=== PATIENT | female | born 1965 | race Caucasian/White ===

== ENCOUNTER 2017-12-21 18:54 | Inpatient (IN) | payer BC ==
[2017-12-21 19:16] VITALS: BMI 20.9
[2017-12-21] MEDS ORDERED: Sodium Chloride 0.9% 1,000 ML IV STA (19:29)
[2017-12-21 20:03] LABS: BASO # 0.02 K/mm3 (0.0-2.0); BASO % 0.3 % (0.0-3.0); EOS % 0.3 % (1.5-5.0); GRAN # 5.05 (1.4-6.5); GRAN % 66.9 % (50.0-68.0); LYMPH % 26.3 % (22.0-35.0); MEAN CELL VOLUME 92.8 fl (80.0-105.0); MEAN CORPUSCULAR HEMOGLOBIN 32.1 pg (25.0-35.0); MEAN CORPUSCULAR HGB CONC 34.6 g/dl (31.0-37.0); MEAN PLATELET VOLUME 11.2 fl (7.0-11.0); MONO # 0.5 (0.1-0.6); MONO % 6.2 % (1.0-6.0); RBC 4.99 10^6/uL (3.5-6.1); WHITE BLOOD COUNT 7.5 10^3/uL (4.5-11.0)
[2017-12-21 20:11] LABS: INR 1.27; PARTIAL THROMBOPLASTIN TIME 26.3 Seconds (25.1-36.5); PROTHROMBIN TIME 14.5 SECONDS (9.4-12.5)
[2017-12-21 20:20] LABS: ALB/GLOB RATIO 1.2 (1.1-1.8); ALBUMIN 4.7 g/dL (3.0-4.8); ALT/SGPT 20 U/L (7-56); AMYLASE 94 U/L (35-125); AST/SGOT 28 U/L (14-36); BLOOD UREA NITROGEN 13 mg/dL (7-21); CALCIUM 9.7 mg/dL (8.4-10.5); GFR NON-AFRICAN AMERICAN > 60; LIPASE 120 U/L (23-300)
[2017-12-21] MEDS ORDERED: Potassium Chloride 20 mEq ER Tab PO STA (20:21)
--- NOTE | 2017-12-21 20:26 | ED PDOC ---
Arrival/HPI - General Chief Complaint: GI Problem Time Seen by Provider: 12/21/17 19:09 Historian: Patient - History of Present Illness Narrative History of Present Illness (Text): 12/21/17 19:25 52 year old female, with no significant past medical history, presents to the emergency department complaining of epigastric ches pain abdominal pain and vomiting after taking her friends medication. Patient states she ran out of her Vicodin and took her friends Baclofen and Flexeril instead. The patient denies any fever, chills, chest pain, shortness of breath, diarrhea, urinary symptoms, back pain, neck pain, headache, dizziness, or any other complaints. PMD: Dr. Artie Jade 12/21/17 21:44 Symptom Onset: Gradual Symptom Course: Unchanged Activities at Onset: Light Context: Home Past Medical History - Provider Review Nursing Documentation Reviewed: Yes - Tetanus Immunization Tetanus Immunization: Unknown - Musculoskeletal/Rheumatological Hx Arthritis: Yes (hips B/L - laser surgery with injections) Hx Falls: No - Psychiatric Hx Psychophysiologic Disorder: No Hx Substance Use: No - Surgical History Other/Comment: on hips bilaterally - laser surgery with injections as per patient. Family/Social History - Physician Review Nursing Documentation Reviewed: Yes Family/Social History: No Known Family HX Smoking Status: Light Smoker < 10 Cigarettes Daily Hx Alcohol Use: Yes Hx Substance Use: No Allergies/Home Meds Allergies/Adverse Reactions: Allergies Penicillins Allergy (Verified 08/25/15 04:49) RASH Home Medications: Home Meds Medication Instructions Recorded Confirmed Acetaminophen/Hydrocodone Bi 1 tab PO Q6 PRN 12/22/17 12/22/17 [Vicodin 300 mg-5 mg] RX: traMADol [Ultram] 50 mg PO Q6 12/22/17 12/22/17 Review of Systems - Physician Review All systems were reviewed & negative as marked: Yes - Review of Systems Constitutional: absent: Fevers, Other (Chills) Respiratory: absent: SOB Cardiovascular: absent: Chest Pain Gastrointestinal: Abdominal Pain, Nausea, Vomiting. absent: Diarrhea Genitourinary Female: absent: Dysuria, Frequency, Hematuria Musculoskeletal: absent: Back Pain, Neck Pain Neurological: absent: Headache, Dizziness Physical Exam Vital Signs Reviewed: Yes Vital Signs Temp Pulse Resp BP Pulse Ox 12/21/17 19:15 98.6 F 78 18 118/86 98 Temperature: Afebrile Blood Pressure: Normal Pulse: Regular Respiratory Rate: Normal Appearance: Positive for: Well-Appearing, Non-Toxic, Comfortable Pain Distress: None Mental Status: Positive for: Alert and Oriented X 3, Lethargic (slightly ) - Systems Exam Head: Present: Atraumatic, Normocephalic Pupils: Present: PERRL Extroacular Muscles: Present: EOMI Conjunctiva: Present: Normal Mouth: Present: Moist Mucous Membranes Neck: Present: Normal Range of Motion Respiratory/Chest: Present: Clear to Auscultation, Good Air Exchange. No: Respiratory Distress, Accessory Muscle Use Cardiovascular: Present: Regular Rate and Rhythm, Normal S1, S2. No: Murmurs Abdomen: Present: Tenderness (Mild epigastric tenderness). No: Distention, Peritoneal Signs Back: Present: Normal Inspection Upper Extremity: Present: Normal Inspection. No: Cyanosis, Edema Lower Extremity: Present: Normal Inspection. No: Edema Neurological: Present: GCS=15, CN II-XII Intact, Speech Normal Skin: Present: Warm, Dry, Normal Color. No: Rashes Psychiatric: Present: Alert, Oriented x 3, Normal Insight, Normal Concentration Medical Decision Making ED Course and Treatment: 12/21/17 19:25 Impression: 52 year old female presents complaining of epigastric abdominal pain and vomiting after taking her friends Baclofen and Flexeril. Plan: -- EKG -- Labs -- CXR -- K-Dur 20, Pepcid, IV Fluids, Zofran Inj -- Urinalysis -- Reassess and disposition Progress Notes: 12/21/17 20:15 EKG shows NSR at 71 BPM with flipped T-Wave V3 and V2. Interpreted by me 12/21/17 21:37 Case discussed with [facility] resident and Dr. Andino who is aware and agrees with the plan. Accepts patient into hospitalist service. 12/21/17 22:41 CXR Impression: As read by PARISH crawley. - Lab Interpretations Lab Results: 12/21/17 19:50 12/21/17 19:50 Lab Results 12/21/17 19:50: Sodium 143, Potassium 3.4 L, Chloride 108 H, Carbon Dioxide 23, Anion Gap 16, BUN 13, Creatinine 0.7, Est GFR ( Amer) > 60, Est GFR (Non- Af Amer) > 60, Random Glucose 130 H, Calcium 9.7, Total Bilirubin 0.8, AST 28, ALT 20, Alkaline Phosphatase 104, Lactate Dehydrogenase 476, Total Creatine Kinase 79, Troponin I Pending, Total Protein 8.7 H, Albumin 4.7, Globulin 4.0, Albumin/Globulin Ratio 1.2, Amylase 94, Lipase 120 12/21/17 19:50: PT 14.5 H, INR 1.27, APTT 26.3 12/21/17 19:50: WBC 7.5, RBC 4.99, Hgb 16.0, Hct 46.3, MCV 92.8, MCH 32.1, MCHC 34.6, RDW 13.0, Plt Count 247, MPV 11.2 H, Gran % 66.9, Lymph % (Auto) 26.3, [place] % (Auto) 6.2 H, Eos % (Auto) 0.3 L, Baso % (Auto) 0.3, Gran # 5.05, Lymph # (Auto) 2.0, [place] # (Auto) 0.5, Eos # (Auto) 0.0, Baso # (Auto) 0.02 I have reviewed the lab results: Yes - EKG Interpretation Interpreted by ED Physician: Yes Type: 12 lead EKG - Medication Orders Current Medication Orders: Sodium Chloride (Sodium Chloride 0.9%) 1,000 mls @ 100 mls/hr IV .Q10H STA Stop: 12/22/17 05:28 Last Admin: 12/21/17 19:55 Dose: 100 mls/hr eMAR Start Stop Document 12/21/17 19:55 CNR (Rec: 12/21/17 19:57 CNR [id number]) Intravenous Solution Start Date 12/21/17 Start Time 19:56 Potassium Chloride (K-Dur 20 Meq Er Tab) 40 meq PO STAT STA Stop: 12/21/17 20:22 Discontinued Medications Famotidine (Pepcid) 20 mg IVP STAT STA Stop: 12/21/17 19:30 Last Admin: 12/21/17 19:57 Dose: 20 mg IVP Administration Document 12/21/17 19:57 CNR (Rec: 12/21/17 19:57 CNR [id number]) Charges for Administration # of IVP Administrations 1 Ondansetron HCl (Zofran Inj) 4 mg IVP STAT STA Stop: 12/21/17 19:30 Last Admin: 12/21/17 19:57 Dose: 4 mg IVP Administration Document 12/21/17 19:57 CNR (Rec: 12/21/17 19:57 CNR [id number]) Charges for Administration # of IVP Administrations 1 - Scribe Statement The provider has reviewed the documentation as recorded by the Carissa Cespedes Provider Scribe Attestation: All medical record entries made by the Carissa were at my direction and personally dictated by me. I have reviewed the chart and agree that the record accurately reflects my personal performance of the history, physical exam, medical decision making, and the department course for this patient. I have also personally directed, reviewed, and agree with the discharge instructions and disposition. Disposition/Present on Arrival - Present on Arrival Any Indicators Present on Arrival: No History of DVT/PE: No History of Uncontrolled Diabetes: No Urinary Catheter: No History of Decub. Ulcer: No History Surgical Site Infection Following: None - Disposition Have Diagnosis and Disposition been Completed?: Yes Diagnosis: Chest pain, Abdominal pain Disposition: HOSPITALIZED Disposition Time: 22:10 Condition: FAIR
[2017-12-21 20:31] LABS: TROPONIN I < 0.01 ng/mL
[2017-12-21] MEDS ORDERED: Morphine 2 mg/ml ISec IVP STA (21:12)
--- NOTE | 2017-12-22 00:14 | CP.PCM.HP ---
<Jason Medley - Last Filed: 12/22/17 02:31> History of Present Illness - History of Present Illness History of Present Illness: Jason Medley DO, PGY-1 Hospitalist Admission History and Physical for Dr. Andino CC: epigastric abdominal pain, OD on flexiril, baclofen HPI: Ms. Smith is a 52 year old female with PMH of chronic back pain presented to ED following OD of baclofen and flexiril. She states that she took 2 baclofen and 2 10 mg tablets of flexiril. She took these to get relief from back pain as she ran out of her prescription vicodin recently. She states she has had back pain for the past year ever since she slipped and fell in her home. She normally follows with her PMD for pain management. She states that she took the baclofen and flexiril at the recommendation of a friend who stated it would help with pain. She denies suicidal ideation or intent and states that she took the pills for relief of back pain and not for self-harm. She endorses epigastric abdominal pain, nausea, and vomiting since taking the pills but denies fever/chills, CP, SOB, dizziness, ANAND, or changes in vision. PMD: Yasmany Past Medical Hx: chronic back pain Past Surgical Hx: b/l hip surgeries Allergies: PCN Home medications: ASA 81 mg daily, gabapentin 100 TID Family Hx: mother had DM2 Social Hx: admits to smoking 1-2 cigarettes per day for the past 20 years, denies alcohol or illicit drug use. Present on Admission - Present on Admission Any Indicators Present on Admission: No History of DVT/PE: No History of Uncontrolled Diabetes: No Urinary Catheter: No Decubitus Ulcer Present: No Review of Systems - Constitutional Constitutional: absent: Chills, Fever - EENT Eyes: absent: Blurred Vision, Change in Vision - Cardiovascular Cardiovascular: absent: Chest Pain, Dyspnea - Respiratory Respiratory: absent: Cough, Dyspnea - Gastrointestinal Gastrointestinal: Abdominal Pain, Nausea, Vomiting - Genitourinary Genitourinary: absent: Change in Urinary Stream, Dysuria Past Patient History - Tetanus Immunizations Tetanus Immunization: Unknown - Past Social History Smoking Status: Light Smoker < 10 Cigarettes Daily - MUSCULOSKELETAL/RHEUMATOLOGICAL Hx Arthritis: Yes (hips B/L - laser surgery with injections) Hx Falls: No - PSYCHIATRIC Hx Psychophysiologic Disorder: No Hx Substance Use: No - SURGICAL HISTORY Other/Comment: on hips bilaterally - laser surgery with injections as per patient. Meds Allergies/Adverse Reactions: Allergies Allergy/AdvReac Type Severity Reaction Status Date / Time Penicillins Allergy RASH Verified 08/25/15 04:49 Physical Exam - Constitutional Appears: Non-toxic, No Acute Distress - Head Exam Head Exam: ATRAUMATIC, NORMOCEPHALIC - Eye Exam Eye Exam: EOMI, Normal appearance, PERRL - ENT Exam ENT Exam: Mucous Membranes Moist - Neck Exam Neck exam: Positive for: Full Rom, Normal Inspection - Respiratory Exam Respiratory Exam: Clear to Auscultation Bilateral, NORMAL BREATHING PATTERN. absent: Rales, Rhonchi, Wheezes - Cardiovascular Exam Cardiovascular Exam: REGULAR RHYTHM, RRR, +S1, +S2. absent: Diastolic murmur, Gallop, Rubs, Systolic Murmur - GI/Abdominal Exam GI & Abdominal Exam: Normal Bowel Sounds, Soft, Tenderness (tenderness to palpa tion epigastric region). absent: Guarding, Organomegaly, Rebound - Extremities Exam Extremities exam: Positive for: normal inspection. Negative for: pedal edema - Back Exam Back exam: NORMAL INSPECTION. absent: CVA tenderness (L), CVA tenderness (R), paraspinal tenderness, tenderness, vertebral tenderness - Neurological Exam Neurological exam: Alert, Oriented x3 - Psychiatric Exam Psychiatric exam: Normal Affect, Normal Mood - Skin Skin Exam: Dry, Intact, Warm Results - Vital Signs Recent Vital Signs: Last Vital Signs Temp 98.6 F 12/21/17 19:15 Pulse 63 12/21/17 23:33 Resp 18 12/21/17 23:33 BP 150/74 12/21/17 23:33 Pulse Ox 97 12/21/17 23:33 - Labs Result Diagrams: 12/21/17 19:50 12/21/17 19:50 Labs: Laboratory Results - last 24 hr 12/21/17 12/21/17 12/21/17 19:50 19:50 19:50 WBC 7.5 RBC 4.99 Hgb 16.0 Hct 46.3 MCV 92.8 MCH 32.1 MCHC 34.6 RDW 13.0 Plt Count 247 MPV 11.2 H Gran % 66.9 Lymph % (Auto) 26.3 [place] % (Auto) 6.2 H Eos % (Auto) 0.3 L Baso % (Auto) 0.3 Gran # 5.05 Lymph # (Auto) 2.0 [place] # (Auto) 0.5 Eos # (Auto) 0.0 Baso # (Auto) 0.02 PT 14.5 H INR 1.27 APTT 26.3 Sodium 143 Potassium 3.4 L Chloride 108 H Carbon Dioxide 23 Anion Gap 16 BUN 13 Creatinine 0.7 Est GFR ( Amer) > 60 Est GFR (Non-Af Amer) > 60 Random Glucose 130 H Calcium 9.7 Total Bilirubin 0.8 AST 28 ALT 20 Alkaline Phosphatase 104 Lactate Dehydrogenase 476 Total Creatine Kinase 79 Troponin I < 0.01 Total Protein 8.7 H Albumin 4.7 Globulin 4.0 Albumin/Globulin Ratio 1.2 Amylase 94 Lipase 120 Assessment & Plan - Assessment and Plan (Free Text) Assessment: 52 yo F with PMH of chronic back pain is admitted following OD of baclofen and flexiril. Plan: 1. Baclofen, flexiril OD Epigastric abdominal pain, nausea, vomiting likely 2/2 recent OD of baclofen, flexirel Poison control notified by ED, f/u poison control recs Lipase, amylase not elevated Continue zofran q4h PRN for nausea/vomiting Also gave one time dose of phenergan for worsening nausea following CT Will get CT abdomen/pelvis to r/o acute pathology Monitor BP and HR closely on telemetry DVT/GI PPX: SCD, protonix Full Code NPO Monitor on telemetry Case and plan reviewed and discussed with my attending Dr. hTu Medley, DO IM Resident PGY-1 <Alisha Andino - Last Filed: 12/22/17 03:07> Results - Vital Signs Recent Vital Signs: Last Vital Signs Temp 99.7 F H 12/22/17 00:59 Pulse 64 12/22/17 00:59 Resp 20 12/22/17 00:59 BP 140/83 12/22/17 00:59 Pulse Ox 98 12/22/17 00:59 - Labs Result Diagrams: 12/21/17 19:50 12/21/17 19:50 Labs: Laboratory Results - last 24 hr 12/21/17 12/21/17 12/21/17 19:50 19:50 19:50 WBC 7.5 RBC 4.99 Hgb 16.0 Hct 46.3 MCV 92.8 MCH 32.1 MCHC 34.6 RDW 13.0 Plt Count 247 MPV 11.2 H Gran % 66.9 Lymph % (Auto) 26.3 [place] % (Auto) 6.2 H Eos % (Auto) 0.3 L Baso % (Auto) 0.3 Gran # 5.05 Lymph # (Auto) 2.0 [place] # (Auto) 0.5 Eos # (Auto) 0.0 Baso # (Auto) 0.02 PT 14.5 H INR 1.27 APTT 26.3 Sodium 143 Potassium 3.4 L Chloride 108 H Carbon Dioxide 23 Anion Gap 16 BUN 13 Creatinine 0.7 Est GFR ( Amer) > 60 Est GFR (Non-Af Amer) > 60 Random Glucose 130 H Calcium 9.7 Total Bilirubin 0.8 AST 28 ALT 20 Alkaline Phosphatase 104 Lactate Dehydrogenase 476 Total Creatine Kinase 79 Troponin I < 0.01 Total Protein 8.7 H Albumin 4.7 Globulin 4.0 Albumin/Globulin Ratio 1.2 Amylase 94 Lipase 120 Urine Color Urine Appearance Urine pH Ur Specific [place] Urine Protein Urine Glucose (UA) Urine Ketones Urine Blood Urine Nitrate Urine Bilirubin Urine Urobilinogen Ur Leukocyte Esterase Urine RBC Urine WBC Ur Epithelial Cells Urine Bacteria Urine Opiates Screen Urine Methadone Screen Ur Barbiturates Screen Ur Phencyclidine Scrn Ur Amphetamines Screen U Benzodiazepines Scrn U Oth Cocaine Metabols U Cannabinoids Screen 12/22/17 12/22/17 00:40 00:40 WBC RBC Hgb Hct MCV MCH MCHC RDW Plt Count MPV Gran % Lymph % (Auto) [place] % (Auto) Eos % (Auto) Baso % (Auto) Gran # Lymph # (Auto) [place] # (Auto) Eos # (Auto) Baso # (Auto) PT INR APTT Sodium Potassium Chloride Carbon Dioxide Anion Gap BUN Creatinine Est GFR ( Amer) Est GFR (Non-Af Amer) Random Glucose Calcium Total Bilirubin AST ALT Alkaline Phosphatase Lactate Dehydrogenase Total Creatine Kinase Troponin I Total Protein Albumin Globulin Albumin/Globulin Ratio Amylase Lipase Urine Color Yellow Urine Appearance Sl cloudy Urine pH 6.0 Ur Specific [place] >= 1.030 Urine Protein Negative Urine Glucose (UA) Negative Urine Ketones >=80 Urine Blood Moderate H Urine Nitrate Negative Urine Bilirubin Negative Urine Urobilinogen 0.2 Ur Leukocyte Esterase Negative Urine RBC 2 - 5 Urine WBC 0 - 2 Ur Epithelial Cells 1 - 3 Urine Bacteria Trace Urine Opiates Screen Positive H Urine Methadone Screen Negative Ur Barbiturates Screen Negative Ur Phencyclidine Scrn Negative Ur Amphetamines Screen Negative U Benzodiazepines Scrn Negative U Oth Cocaine Metabols Negative U Cannabinoids Screen Negative Attending/Attestation - Attestation I have personally seen and examined this patient.: Yes I have fully participated in the care of the patient.: Yes I have reviewed all pertinent clinical information: Yes Notes (Text): 12/22/17 03:04 Pt seen with the resident by the bedside. Case discussed in detail. Agree with documentation,assessment and plan of treatment.
[2017-12-22 01:22] LABS: URINE BILIRUBIN NEGATIVE (NEGATIVE); URINE BLOOD MODERATE (NEGATIVE); URINE GLUCOSE (UA) NEGATIVE (NEGATIVE); URINE LEUKOCYTE ESTERASE NEGATIVE Leu/uL (NEGATIVE); URINE PROTEIN NEGATIVE mg/dL (<30 mg/dL); URINE UROBILINOGEN 0.2 E.U./dL (<1 E.U./dL)
[2017-12-22 01:28] LABS: URINE APPEARANCE SL CLOUDY (CLEAR)
[2017-12-22 01:29] LABS: URINE COLOR YELLOW (YELLOW)
[2017-12-22 01:45] LABS: URINE BACTERIA TRACE (NEG); URINE WBC 0 - 2 /hpf (0-6)
[2017-12-22] MEDS ORDERED: DiphenhydrAMINE 50 mg/ml Inj IVP STA (01:52)
[2017-12-22 01:55] LABS: BARBITURATES, UR NEGATIVE (NEGATIVE); BENZODIAZEPINES, UR NEGATIVE (NEGATIVE); OPIATES, UR POSITIVE (NEGATIVE); PHENCYCLIDINE, UR NEGATIVE (NEGATIVE)
[2017-12-22 07:21] LABS: LDL CHOLESTEROL 127 mg/dL (0-129)
[2017-12-22 07:22] LABS: BASO # 0.03 K/mm3 (0.0-2.0); BASO % 0.3 % (0.0-3.0); GRAN # 6.77 (1.4-6.5); GRAN % 67.7 % (50.0-68.0); HEMOGLOBIN 14.1 g/dL (12.0-16.0); LYMPH # 2.5 (1.2-3.4); LYMPH % 25.1 % (22.0-35.0); MEAN CELL VOLUME 92.9 fl (80.0-105.0); MEAN CORPUSCULAR HEMOGLOBIN 31.1 pg (25.0-35.0); MEAN CORPUSCULAR HGB CONC 33.5 g/dl (31.0-37.0); MEAN PLATELET VOLUME 11.2 fl (7.0-11.0); MONO # 0.7 (0.1-0.6); MONO % 6.9 % (1.0-6.0); RBC 4.53 10^6/uL (3.5-6.1); RED CELL DISTRIBUTION WIDTH 13.2 % (11.5-14.5)
[2017-12-22 07:31] LABS: ALB/GLOB RATIO 1.2 (1.1-1.8); ALBUMIN 4.2 g/dL (3.0-4.8); ALT/SGPT 18 U/L (7-56); AST/SGOT 34 U/L (14-36); BLOOD UREA NITROGEN 9 mg/dL (7-21); CALCIUM 9.5 mg/dL (8.4-10.5); GFR NON-AFRICAN AMERICAN > 60; HDL CHOLESTEROL 52 mg/dL (29-60)
--- NOTE | 2017-12-22 08:54 | RAD ---
Date of service: 12/21/2017 HISTORY: cp COMPARISON: No prior. FINDINGS: LUNGS: No active pulmonary disease. PLEURA: No significant pleural effusion identified, no pneumothorax apparent. CARDIOVASCULAR: No aortic atherosclerotic calcification present. Normal cardiac size. No pulmonary vascular congestion. OSSEOUS STRUCTURES: No significant abnormalities. VISUALIZED UPPER ABDOMEN: Normal. OTHER FINDINGS: None. IMPRESSION: No active disease.
--- NOTE | 2017-12-22 10:07 | CARD ---
APPROVED REPORT Date of service: 12/22/2017 EKG Measurement Heart [id number] <Conclusion> Normal sinus rhythm ST abnormality, possible digitalis effect Abnormal ECG
--- NOTE | 2017-12-22 10:12 | CARD ---
APPROVED REPORT Date of service: 12/21/2017 EKG Measurement Heart [id number] <Conclusion> Normal sinus rhythm T wave abnormality, consider anterior ischemia Prolonged QT Abnormal ECG
[2017-12-22] MEDS: Sodium Chloride 0.9% 1,000 ML IV SCH (12:30)
--- NOTE | 2017-12-22 13:26 | CT ---
Date of service: 12/21/2017 PROCEDURE: CT Abdomen and Pelvis without intravenous contrast HISTORY: OD on baclofen, flexiril, epigastric pain COMPARISON: None. TECHNIQUE: Technique. Contrast dose: Radiation dose: Total exam DLP = 363.09 mGy-cm. This CT exam was performed using one or more of the following dose reduction techniques: Automated exposure control, adjustment of the mA and/or kV according to patient size, and/or use of iterative reconstruction technique. FINDINGS: LOWER THORAX: Unremarkable. LIVER: Unremarkable. No gross lesion or ductal dilatation. GALLBLADDER AND BILE DUCTS: Unremarkable. PANCREAS: Unremarkable. No gross lesion or ductal dilatation. SPLEEN: Unremarkable. ADRENALS: Unremarkable. No mass. KIDNEYS AND URETERS: Punctate left renal calculi. No hydronephrosis.. No hydronephrosis. No solid mass. VASCULATURE: Unremarkable. No aortic aneurysm. No aortic atherosclerotic calcification or mural plaque present. BOWEL: Unremarkable. No obstruction. No gross mural thickening. APPENDIX: Unremarkable. Normal appendix. PERITONEUM: Unremarkable. No free fluid. No free air. LYMPH NODES: Unremarkable. No enlarged lymph nodes. BLADDER: Unremarkable. REPRODUCTIVE: Unremarkable. BONES: No acute fracture. OTHER FINDINGS: None. IMPRESSION: Punctate left renal calculi. No hydronephrosis.
--- NOTE | 2017-12-22 17:49 | CARD ---
APPROVED REPORT Date of service: 12/22/2017 EKG Measurement Heart [id number] [id number] <Conclusion> Normal sinus rhythm Normal ECG
[2017-12-23] MEDS: Sodium Chloride 0.9% 1,000 ML IV SCH ×3 (00:26→21:44)
[2017-12-23 06:58] LABS: BASO # 0.02 K/mm3 (0.0-2.0); BASO % 0.2 % (0.0-3.0); EOS % 0.1 % (1.5-5.0); GRAN # 4.85 (1.4-6.5); GRAN % 52.8 % (50.0-68.0); HEMOGLOBIN 13.8 g/dL (12.0-16.0); LYMPH # 3.5 (1.2-3.4); LYMPH % 38.5 % (22.0-35.0); MEAN CELL VOLUME 92.5 fl (80.0-105.0); MEAN CORPUSCULAR HEMOGLOBIN 30.5 pg (25.0-35.0); MEAN PLATELET VOLUME 11.9 fl (7.0-11.0); MONO # 0.8 (0.1-0.6); MONO % 8.4 % (1.0-6.0); RBC 4.52 10^6/uL (3.5-6.1); RED CELL DISTRIBUTION WIDTH 12.9 % (11.5-14.5); WHITE BLOOD COUNT 9.2 10^3/uL (4.5-11.0)
[2017-12-23 07:18] LABS: ALB/GLOB RATIO 1.2 (1.1-1.8); ALBUMIN 4.1 g/dL (3.0-4.8); ALT/SGPT 22 U/L (7-56); AST/SGOT 33 U/L (14-36); BLOOD UREA NITROGEN 8 mg/dL (7-21); CALCIUM 9.2 mg/dL (8.4-10.5); GFR NON-AFRICAN AMERICAN > 60
[2017-12-23] MEDS ORDERED: Potassium Chloride 20 mEq ER Tab PO STA (07:47)
--- NOTE | 2017-12-23 18:12 | CP.PCM.PN ---
<aJnee Rodriguez - Last Filed: 12/23/17 18:45> Subjective - Date & Time of Evaluation Date of Evaluation: 12/23/17 Time of Evaluation: 18:09 - Subjective Subjective: Resident Janee Rodriguez DO PGY-[address] Sylvia Hernandez: Pt was seen and examined this morning at bedside. She states that her nausea and vomiting has improved. She was able to tolerate a CLD, and was advanced to a soft diet. Upon having soft diet she vomiting and complained of nausea after attempting to eat. Will attempt to advance diet again in the AM. Objective - Vital Signs/Intake and Output Vital Signs (last 24 hours): Temp Pulse Resp BP Pulse Ox 99.7 F H 68 18 113/81 97 12/23/17 17:23 12/23/17 17:23 12/23/17 17:23 12/23/17 17:23 12/23/17 00:01 Intake and Output: 12/23/17 12/23/17 06:59 18:59 Intake Total 1300 Balance 1300 - Medications Medications: Current Medications Aspirin (Aspirin Chewable) 81 mg PO DAILY [facility] Last Admin: 12/23/17 09:20 Dose: 81 mg Gabapentin (Neurontin) 100 mg PO TID [facility]; Protocol Last Admin: 12/23/17 17:36 Dose: 100 mg Sodium Chloride (Sodium Chloride 0.9%) 1,000 mls @ 100 mls/hr IV .Q10H [facility] Last Admin: 12/23/17 13:00 Dose: 100 mls/hr Ondansetron HCl (Zofran Inj) 4 mg IVP Q4H PRN PRN Reason: Nausea/Vomiting Last Admin: 12/23/17 09:20 Dose: 4 mg Pantoprazole Sodium (Protonix Inj) 40 mg IVP DAILY [facility] Last Admin: 12/23/17 09:20 Dose: 40 mg Tramadol HCl (Ultram) 50 mg PO Q6 PRN PRN Reason: Pain, severe (8-10) Zolpidem Tartrate (Ambien) 5 mg PO HS PRN; Protocol PRN Reason: Insomnia - Labs Labs: 12/23/17 06:00 12/23/17 06:00 PT 14.5 SECONDS (9.4-12.5) H 12/21/17 19:50 INR 1.27 12/21/17 19:50 APTT 26.3 Seconds (25.1-36.5) 12/21/17 19:50 - Constitutional Appears: Well, Non-toxic, No Acute Distress - Head Exam Head Exam: ATRAUMATIC, NORMAL INSPECTION, NORMOCEPHALIC - Eye Exam Eye Exam: EOMI, Normal appearance, PERRL - Respiratory Exam Respiratory Exam: Clear to Ausculation Bilateral, NORMAL BREATHING PATTERN. absent: Accessory Muscle Use, Decreased Breath Sounds, Rales, Rhonchi, Wheezes - Cardiovascular Exam Cardiovascular Exam: RRR, +S1, +S2. absent: Gallop, Rubs - GI/Abdominal Exam GI & Abdominal Exam: Soft, Tenderness (Present in LUQ), Normal Bowel Sounds. absent: Firm, Guarding, Rigid - Extremities Exam Extremities Exam: Full ROM, Normal Inspection. absent: Pedal Edema - Back Exam Back Exam: NORMAL INSPECTION. absent: CVA tenderness (L), CVA tenderness (R) - Neurological Exam Neurological Exam: Alert, Awake, Oriented x3 - Psychiatric Exam Psychiatric exam: Normal Affect, Normal Mood - Skin Skin Exam: Dry, Intact, Normal Color, Warm Assessment and Plan - Assessment and Plan (Free Text) Assessment: 52 yo F with PMH of chronic back pain is admitted following OD of baclofen and flexiril. Continues to complain of nausea and vomiting after attempting to advance diet to soft. Will attempt to advance pt tomorrow. Plan: 1. Epigastric Abdominal pain and vomiting likely 2/2 Baclofen, flexiril OD - Lipase, amylase not elevated - Continue zofran q4h PRN for nausea/vomiting - Also gave one time dose of phenergan for worsening nausea following CT - CT abd/pelvis - Punctate L renal calculi. No hydronephrosis - GI consulted - Will attempt to advance diet tomorrow per GI recs 2. Watery Diarrhea: - Newly started this AM, had 1 bout of watery diarrhea, no recent abx use - GI consulted 3. Hypokalemia: - Repleted, will continue to monitor DVT/GI PPX: SCD, protonix Full Code NPO Monitor on telemetry Case discussed and reviewed with Dr. Sylvia Rodriguez, IM Resident PGY-1 <Maki Hernandez R - Last Filed: 12/25/17 07:27> Objective - Vital Signs/Intake and Output Vital Signs (last 24 hours): Temp Pulse Resp BP Pulse Ox 98.9 F 70 20 128/81 100 12/25/17 06:00 12/25/17 06:00 12/25/17 06:00 12/25/17 06:00 12/25/17 06:00 Intake and Output: 12/25/17 12/25/17 06:59 18:59 Intake Total 1500 Balance 1500 - Medications Medications: Current Medications Al Hydrox/Mg Hydrox/Simethicone (Maalox Plus 30 Ml) 30 ml PO DAILY PRN PRN Reason: Indigestion / Heartburn Last Admin: 12/24/17 13:58 Dose: 30 ml Aspirin (Aspirin Chewable) 81 mg PO DAILY [facility] Last Admin: 12/24/17 09:41 Dose: 81 mg Gabapentin (Neurontin) 100 mg PO TID [facility]; Protocol Last Admin: 12/24/17 17:15 Dose: 100 mg Sodium Chloride (Sodium Chloride 0.9%) 1,000 mls @ 100 mls/hr IV .Q10H [facility] Last Admin: 12/25/17 05:45 Dose: 100 mls/hr Ondansetron HCl (Zofran Inj) 4 mg IVP Q4H PRN PRN Reason: Nausea/Vomiting Last Admin: 12/25/17 06:11 Dose: 4 mg Pantoprazole Sodium (Protonix Inj) 40 mg IVP DAILY [facility] Last Admin: 12/24/17 09:41 Dose: 40 mg Tramadol HCl (Ultram) 50 mg PO Q6 PRN PRN Reason: Pain, severe (8-10) Zolpidem Tartrate (Ambien) 5 mg PO HS PRN; Protocol PRN Reason: Insomnia Last Admin: 12/24/17 22:09 Dose: 5 mg - Labs Labs: 12/24/17 05:30 12/24/17 05:30 PT 14.5 SECONDS (9.4-12.5) H 12/21/17 19:50 INR 1.27 12/21/17 19:50 APTT 26.3 Seconds (25.1-36.5) 12/21/17 19:50 Attending/Attestation - Attestation I have personally seen and examined this patient.: Yes I have fully participated in the care of the patient.: Yes I have reviewed all pertinent clinical information, including history, physical exam and plan: Yes Notes (Text): Patient seen and examined by me with resident at 11:45 AM on 12/23/17. Case including HPI, physical exam, and assessment and plan discussed with resident. Agree with above with following additions/corrections. Patient is a 52-year-old female past medical history significant for chronic back pain that presented to the emergency room with epigastric abdominal pain after taking 2 baclofen pills and two 10 mg Flexeril pills. Patient states she is not feeling too great. She states that she is having abdominal pain. She states she threw up this morning. States she felt better after receiving Zofran. She states she feels like she is withdrawing from her pain medications. She states she has been taking medications for about 2 years now and wants to stop. No chest pain or palpitations. No headaches or dizziness. No dysuria.No fevers or chills. Patient states she did have watery bowel movements this morning. Physical exam: General: Awake and alert sitting upin bed in no acute distress HEENT: Normocephalic, atraumatic. Extraocular muscles intact, pupils equal and reactive, no scleral icterus. Oropharynx is pink and moist. Neck is supple. Cardiovascular: Regular rhythm. Normal S1 and S2. No murmurs, rubs, or gallops appreciated Pulmonary: Normal respiratory effort. No rhonchi, rales, or wheezing appreciated. Gastrointestinal: Soft. Nondistended. Positive periumbilical tenderness. Positive bowel sounds all 4 quadrants. No guarding. Musculoskeletal: Moves all extremities. No calf tenderness. No CVA tenderness. No monica appreciated. Central nervous system: AAO x3, CN 2-12 grossly intact. Dermatologic: Skin warm and dry. Assessment and plan:Patient is a 52-year-old female past medical history significant for chronic back pain that presented to the emergency room with epigastric abdominal pain after taking 2 baclofen pills and two 10 mg Flexeril pills. 1. Periumbilical abdominal pain. Nausea and vomiting. Still with vomiting. Continue on clear liquids. Continue with Zofran as needed. We'll consult gastroenterology. Continue Protonix. Unlikely from taking Baclofen and flexeril. CT abdomen and pelvis per radiologist showed punctate left renal calculi, no hydronephrosis. 2. Taking multiple baclofen and Flexeril. Patient counseled on taking only med ications prescribed to her and taking the current dose. Patient states that she took baclofen and Flexeril for muscle and. 3. Diarrhea. We'll monitor for now. 4. Hypokalemia. We'll replace potassium. Continue to monitor. 5. Chronic back pain. Place on tramadol as needed. Continue gabapentin. 6. GI prophylaxis. Protonix. 7. DVT prophylaxis. SCDs. Case was discussed in detail with the patient regarding current diagnosis and treatment plan. All questions answered.
[2017-12-24 06:20] LABS: BASO # 0.03 K/mm3 (0.0-2.0); BASO % 0.4 % (0.0-3.0); EOS % 0.4 % (1.5-5.0); GRAN # 3.14 (1.4-6.5); GRAN % 41.3 % (50.0-68.0); LYMPH # 3.7 (1.2-3.4); LYMPH % 48.2 % (22.0-35.0); MEAN CELL VOLUME 90.5 fl (80.0-105.0); MEAN CORPUSCULAR HEMOGLOBIN 30.9 pg (25.0-35.0); MEAN CORPUSCULAR HGB CONC 34.1 g/dl (31.0-37.0); MEAN PLATELET VOLUME 11.8 fl (7.0-11.0); MONO # 0.7 (0.1-0.6); MONO % 9.7 % (1.0-6.0); RBC 4.21 10^6/uL (3.5-6.1); RED CELL DISTRIBUTION WIDTH 12.5 % (11.5-14.5); WHITE BLOOD COUNT 7.6 10^3/uL (4.5-11.0)
[2017-12-24 06:28] LABS: ALB/GLOB RATIO 1.1 (1.1-1.8); ALBUMIN 3.7 g/dL (3.0-4.8); ALT/SGPT 25 U/L (7-56); AST/SGOT 29 U/L (14-36); BLOOD UREA NITROGEN 7 mg/dL (7-21); GFR NON-AFRICAN AMERICAN > 60
[2017-12-24] MEDS ORDERED: Potassium Chloride 20 mEq ER Tab PO ONE (08:19)
--- NOTE | 2017-12-24 13:33 | CP.PCM.PN ---
<Janee Rodriguez - Last Filed: 12/24/17 13:46> Subjective - Date & Time of Evaluation Date of Evaluation: 12/24/17 Time of Evaluation: 13:18 - Subjective Subjective: Resident Janee Rodriguez DO PGY-[address] Sylvia Hernandez: Pt was seen and examined this morning at bedside. She states that her nausea and vomiting has improved. She was able to tolerate a CLD, and was advanced to a soft diet. Upon having soft diet she vomiting and complained of nausea after attempting to eat. Pt had a repeat of the same symptoms yesterday today. She was able to tolerate CLD, but when advanced to soft she vomited and is unable to tolerate the diet. Pt denies having any episodes of diarrhea today. Objective - Vital Signs/Intake and Output Vital Signs (last 24 hours): Temp Pulse Resp BP Pulse Ox 98.9 F 62 18 138/80 96 12/24/17 11:25 12/24/17 11:25 12/24/17 11:25 12/24/17 11:25 12/24/17 06:00 Intake and Output: 12/24/17 12/24/17 06:59 18:59 Intake Total 1200 Balance 1200 - Medications Medications: Current Medications Aspirin (Aspirin Chewable) 81 mg PO DAILY [facility] Last Admin: 12/24/17 09:41 Dose: 81 mg Gabapentin (Neurontin) 100 mg PO TID [facility]; Protocol Last Admin: 12/24/17 09:41 Dose: 100 mg Sodium Chloride (Sodium Chloride 0.9%) 1,000 mls @ 100 mls/hr IV .Q10H [facility] Last Admin: 12/23/17 21:44 Dose: 100 mls/hr Ondansetron HCl (Zofran Inj) 4 mg IVP Q4H PRN PRN Reason: Nausea/Vomiting Last Admin: 12/24/17 10:50 Dose: 4 mg Pantoprazole Sodium (Protonix Inj) 40 mg IVP DAILY [facility] Last Admin: 12/24/17 09:41 Dose: 40 mg Tramadol HCl (Ultram) 50 mg PO Q6 PRN PRN Reason: Pain, severe (8-10) - Labs Labs: 12/24/17 05:30 12/24/17 05:30 PT 14.5 SECONDS (9.4-12.5) H 12/21/17 19:50 INR 1.27 12/21/17 19:50 APTT 26.3 Seconds (25.1-36.5) 12/21/17 19:50 - Constitutional Appears: Well, Non-toxic, No Acute Distress - Head Exam Head Exam: ATRAUMATIC, NORMAL INSPECTION, NORMOCEPHALIC - Eye Exam Eye Exam: EOMI, Normal appearance, PERRL - Respiratory Exam Respiratory Exam: Clear to Ausculation Bilateral, NORMAL BREATHING PATTERN. absent: Accessory Muscle Use, Rales, Rhonchi, Wheezes, Respiratory Distress - GI/Abdominal Exam GI & Abdominal Exam: Soft, Tenderness (Present in LUQ), Normal Bowel Sounds. absent: Firm, Guarding, Rigid, Organomegaly - Extremities Exam Extremities Exam: Full ROM, Normal Capillary Refill, Normal Inspection. absent: Calf Tenderness, Pedal Edema - Back Exam Back Exam: NORMAL INSPECTION. absent: CVA tenderness (L), CVA tenderness (R) - Neurological Exam Neurological Exam: Alert, Awake, Oriented x3 - Psychiatric Exam Psychiatric exam: Normal Affect, Normal Mood - Skin Skin Exam: Dry, Intact, Normal Color, Warm Assessment and Plan - Assessment and Plan (Free Text) Assessment: 52 yo F with PMH of chronic back pain is admitted following OD of baclofen and flexiril. Continues to complain of nausea and vomiting after attempting to advance diet to soft. Placed pt back on CLD, as she can tolerate that. Plan: 1. Epigastric Abdominal pain and vomiting likely 2/2 Baclofen, flexiril OD - Lipase, amylase not elevated - Continue zofran q4h PRN for nausea/vomiting - CT abd/pelvis - Punctate L renal calculi. No hydronephrosis - GI consulted - Will attempt to advance diet tomorrow per GI recs - Pt not tolerating soft diet still, but is tolerating clears will continue pt on clears 2. Watery Diarrhea: Improved - Pt no longer complained of diarrhea - GI consulted - Will continue to monitor 3. Hypokalemia: - Repleted, will continue to monitor DVT/GI PPX: SCD, protonix Full Code CLD Monitor on telemetry Case discussed and reviewed with Dr. Sylvia Rodriguez DO IM Resident PGY-1 <Maki Hernandez R - Last Filed: 12/25/17 07:31> Objective - Vital Signs/Intake and Output Vital Signs (last 24 hours): Temp Pulse Resp BP Pulse Ox 98.9 F 70 20 128/81 100 12/25/17 06:00 12/25/17 06:00 12/25/17 06:00 12/25/17 06:00 12/25/17 06:00 Intake and Output: 12/25/17 12/25/17 06:59 18:59 Intake Total 1500 Balance 1500 - Medications Medications: Current Medications Al Hydrox/Mg Hydrox/Simethicone (Maalox Plus 30 Ml) 30 ml PO DAILY PRN PRN Reason: Indigestion / Heartburn Last Admin: 12/24/17 13:58 Dose: 30 ml Aspirin (Aspirin Chewable) 81 mg PO DAILY [facility] Last Admin: 12/24/17 09:41 Dose: 81 mg Gabapentin (Neurontin) 100 mg PO TID [facility]; Protocol Last Admin: 12/24/17 17:15 Dose: 100 mg Sodium Chloride (Sodium Chloride 0.9%) 1,000 mls @ 100 mls/hr IV .Q10H [facility] Last Admin: 12/25/17 05:45 Dose: 100 mls/hr Ondansetron HCl (Zofran Inj) 4 mg IVP Q4H PRN PRN Reason: Nausea/Vomiting Last Admin: 12/25/17 06:11 Dose: 4 mg Pantoprazole Sodium (Protonix Inj) 40 mg IVP DAILY [facility] Last Admin: 12/24/17 09:41 Dose: 40 mg Tramadol HCl (Ultram) 50 mg PO Q6 PRN PRN Reason: Pain, severe (8-10) Zolpidem Tartrate (Ambien) 5 mg PO HS PRN; Protocol PRN Reason: Insomnia Last Admin: 12/24/17 22:09 Dose: 5 mg - Labs Labs: 12/24/17 05:30 12/24/17 05:30 PT 14.5 SECONDS (9.4-12.5) H 12/21/17 19:50 INR 1.27 12/21/17 19:50 APTT 26.3 Seconds (25.1-36.5) 12/21/17 19:50 Attending/Attestation - Attestation I have personally seen and examined this patient.: Yes I have fully participated in the care of the patient.: Yes I have reviewed all pertinent clinical information, including history, physical exam and plan: Yes Notes (Text): Patient seen and examined by me with resident at 11:55 AM on 12/24/17. Case including HPI, physical exam, and assessment and plan discussed with resident. Agree with above with following additions/corrections. Patient is a 52-year-old female past medical history significant for chronic back pain that presented to the emergency room with epigastric abdominal pain after taking 2 baclofen pills and two 10 mg Flexeril pills. Patient states she is still having abdominal pain. She sates that the only time she feels better is when she sleeps. Still with nausea and vomiting. Patient only able to tolerate liquids. Patient states she does not want any pain medications. Zofran is helping with nausea and vomiting. No more diarrhea. Pat ient denies chest pain or palpitations. No headaches or dizziness. No dysuria.No fevers or chills. Physical exam: General: Awake and alert sitting upin bed in no acute distress HEENT: Normocephalic, atraumatic. Extraocular muscles intact, pupils equal and reactive, no scleral icterus. Oropharynx is pink and moist. Neck is supple. Cardiovascular: Regular rhythm. Normal S1 and S2. No murmurs, rubs, or gallops appreciated Pulmonary: Normal respiratory effort. No rhonchi, rales, or wheezing kenya reciated. Gastrointestinal: Soft. Nondistended. Positive periumbilical tenderness. Positive bowel sounds all 4 quadrants. No guarding. Musculoskeletal: Moves all extremities. No calf tenderness. No CVA tenderness. No edema appreciated. Central nervous system: AAO x3, CN 2-12 grossly intact. Dermatologic: Skin warm and dry. Assessment and plan:Patient is a 52-year-old female past medical history significant for chronic back pain that presented to the emergency room with epigastric abdominal pain after taking 2 baclofen pills and two 10 mg Flexeril pills. 1. Periumbilical abdominal pain. Nausea and vomiting. Still with vomiting. Continue on clear liquids. Continue with Zofran as needed. GI following, recommendations appreciated. May need EGD. Continue Protonix. Unlikely from taking Baclofen and flexeril. CT abdomen and pelvis per radiologist showed punctate left renal calculi, no hydronephrosis. 2. Taking multiple baclofen and Flexeril. Patient counseled on taking only medications prescribed to her and taking the current dose. Patient states that she took baclofen and Flexeril for muscle and. 3. Diarrhea. Resolved. Continue to monitor. 4. Hypokalemia. Replete potassium. Continue to monitor. 5. Chronic back pain. Continue tramadol as needed. Continue gabapentin. 6. GI prophylaxis. Protonix. 7. DVT prophylaxis. SCDs. Case was discussed in detail with the patient regarding current diagnosis and treatment plan. All questions answered.
[2017-12-24] MEDS ORDERED: Alum-Mag Hydrox-Simethicone Susp (30 mL) PO PRN (13:35)
--- NOTE | 2017-12-24 15:40 | CON ---
DATE: 12/24/2017 HISTORY OF PRESENT ILLNESS: I saw Ms. Smith this morning. She is a 52-year-old black female with past medical history of chronic back pain secondary to disc disease in the lumbosacral area. She apparently ran out of medication in the form of Vicodin and according to her, she took some of her friend's baclofen and Flexeril for back pain relief. She subsequently presented to emergency room with nausea, vomiting, and epigastric pain. She denied hematemesis or rectal bleeding. Note that she has not had a history of acid reflux disease, gastric ulcer, colitis in the past. MEDICATIONS: At home include aspirin, Vicodin, and gabapentin. The patient indicates she was able to handle some liquid intake yesterday, however, when advanced to solids, she felt nauseous yesterday evening. PHYSICAL EXAMINATION: VITAL SIGNS: I reviewed this patient's vital signs. HEENT: Noncontributory. HEART: Regular rhythm. LUNGS: Decreased breath sounds, basilar. ABDOMEN: Soft and very tender in the epigastric area and the left upper quadrant. Periumbilical, left lower quadrant, right lower quadrant noncontributory. The abdomen is not distended. Bowel sounds appear normal. LABORATORY DATA: Significant for H and H of 13 and 41, platelet count 195. She has normal INR. Comprehensive metabolic noncontributory. Urinalysis significant for significant amount of urine blood, urine ketone is elevated, urine is cloudy. Toxicology screen significant for urine opiates. Abdominopelvic CT scan noncontributory for GI pathology. EKG as interpreted by Dr. Mulligan significant for normal sinus rhythm with normal EKG. ASSESSMENT: This is a 52-year-old black female with LS spine disc disease with complaints of abdominal pain after taking an unauthorized dose of medications in the form of Flexeril and baclofen. Note that the patient on questioning does not follow antireflux precautions and needs to drink/eat significantly before she goes to sleep. At the current time point, she has been experiencing epigastric discomfort, but no nausea. I advised her to try a liquid intake for breakfast and then if this is tolerated, to increase her dietary intake to small portions of soft later on this morning. Antireflux precautions were discussed with the patient in detail. Evaluation of the orders are adequate in the form of a PPI on a daily basis Analgesics the decision of the housestaff. I do not feel based on the patient's clinical history that the patient needs any kind of endoscopic evaluation at the current time point but would discuss with her again. PLAN: As indicated above, would advance her diet as tolerated, and if discharged later on today, advised antireflux precautions and a daily dose of PPI. A possible followup in the GI office at a later date at her convenience. Yon Maher DO, PhD [facility]
[2017-12-25] MEDS: Sodium Chloride 0.9% 1,000 ML IV SCH ×4 (05:43→17:04)
--- NOTE | 2017-12-25 07:02 | CP.PCM.PN ---
<Francine Yoon - Last Filed: 12/25/17 11:49> Subjective - Date & Time of Evaluation Date of Evaluation: 12/25/17 Time of Evaluation: 07:01 - Subjective Subjective: Francine Yoon, PGY2, IM Progress Note for Dr Maki Hernandez: Patient seen and examined at bedside. Overnight, patient complained of insomnia, was given ambien 5 mg. This AM, patient reports persistent nausea and vomiting, yellow, nonbloody. Patient states that these episodes occur while she wakes up, stops when while sleeping. Reports persistent epigastric pain. Denies fevers, chills, headache, association with eating, diarrhea, urinary symptoms, leg swelling. Patient then given a dose of reglan 5 mg IV, verbalizes relief of symptoms. Patient further requests soft food and more doses of reglan. Objective - Vital Signs/Intake and Output Vital Signs (last 24 hours): Temp Pulse Resp BP Pulse Ox 98.9 F 70 20 128/81 100 12/25/17 06:00 12/25/17 06:00 12/25/17 06:00 12/25/17 06:00 12/25/17 06:00 Intake and Output: 12/25/17 12/25/17 06:59 18:59 Intake Total 1500 Balance 1500 - Medications Medications: Current Medications Al Hydrox/Mg Hydrox/Simethicone (Maalox Plus 30 Ml) 30 ml PO DAILY PRN PRN Reason: Indigestion / Heartburn Last Admin: 12/24/17 13:58 Dose: 30 ml Aspirin (Aspirin Chewable) 81 mg PO DAILY [facility] Last Admin: 12/24/17 09:41 Dose: 81 mg Gabapentin (Neurontin) 100 mg PO TID [facility]; Protocol Last Admin: 12/24/17 17:15 Dose: 100 mg Sodium Chloride (Sodium Chloride 0.9%) 1,000 mls @ 100 mls/hr IV .Q10H [facility] Last Admin: 12/25/17 05:45 Dose: 100 mls/hr Ondansetron HCl (Zofran Inj) 4 mg IVP Q4H PRN PRN Reason: Nausea/Vomiting Last Admin: 12/25/17 06:11 Dose: 4 mg Pantoprazole Sodium (Protonix Inj) 40 mg IVP DAILY [facility] Last Admin: 12/24/17 09:41 Dose: 40 mg Tramadol HCl (Ultram) 50 mg PO Q6 PRN PRN Reason: Pain, severe (8-10) Zolpidem Tartrate (Ambien) 5 mg PO HS PRN; Protocol PRN Reason: Insomnia Last Admin: 12/24/17 22:09 Dose: 5 mg - Labs Labs: 12/24/17 05:30 12/24/17 05:30 PT 14.5 SECONDS (9.4-12.5) H 12/21/17 19:50 INR 1.27 12/21/17 19:50 APTT 26.3 Seconds (25.1-36.5) 12/21/17 19:50 - Constitutional Appears: Non-toxic, No Acute Distress - Head Exam Head Exam: ATRAUMATIC, NORMOCEPHALIC - Eye Exam Eye Exam: EOMI, PERRL. absent: Conjunctival injection, Nystagmus, Scleral ic terus Pupil Exam: NORMAL ACCOMODATION, PERRL. absent: Irregular, Miosis, Unequal - ENT Exam ENT Exam: Mucous Membranes Moist - Neck Exam Neck Exam: Full ROM - Respiratory Exam Respiratory Exam: Clear to Ausculation Bilateral, NORMAL BREATHING PATTERN. absent: Accessory Muscle Use, Rhonchi, Wheezes - Cardiovascular Exam Cardiovascular Exam: RRR, +S1, +S2. absent: Murmur - GI/Abdominal Exam GI & Abdominal Exam: Soft, Tenderness (epigastric), Hyperactive Bowel Sounds. absent: Distended, Firm, Guarding, Rigid, Mass, Organomegaly, Pulsatile Mass Additional comments: + stretch pisano bilaterally - Extremities Exam Extremities Exam: Normal Inspection. absent: Calf Tenderness, Pedal Edema - Back Exam Back Exam: NORMAL INSPECTION. absent: CVA tenderness (L), CVA tenderness (R) - Neurological Exam Neurological Exam: Alert, Awake, Oriented x3 - Psychiatric Exam Psychiatric exam: Normal Affect, Normal Mood - Skin Skin Exam: Dry, Normal Color, Warm Assessment and Plan - Assessment and Plan (Free Text) Assessment: 52 year old female with PMH chronic back pain, admitted for incorrect use of pain medication, complicated by intractable vomiting and epigastric pain: Epigastric pain, nausea, vomitin/2 peptic ulcer disease vs gastritis vs gastroparesis vs gastroenteritis; baclofen and flexeril use, pancreatitis and cholecystitis ruled out - LFTs, t bili, lipase normal - CT abd/pelvis - Punctate L renal calculi. No hydronephrosis - GI Dr Maher consulted. appreciate recs - f/u HgbA1c - discontinued Aspirin - On protonix 40 IV daily. Started carafate and reglan 5 mg IV x 3 doses. discontinued zofran. - EKG 12/22 reviewed, qtc 448 ms. - Hgb stable. - Will discuss with Dr Maher regarding further plan of care, reglan use - advanced to soft diet for lunch. - Cont to monitor Hypokalemia: - K 3.4 - repleted - monitor Elevated LDL: - Patient counseled, states that she would like to control with diet and exercise. DVT/GI PPX: SCDs, protonix Heart healthy soft diet Case seen, examined and reviewed with attending, Dr Maki Hernandez. <Maki Hernandez R - Last Filed: 12/26/17 12:39> Objective - Vital Signs/Intake and Output Vital Signs (last 24 hours): Temp Pulse Resp BP Pulse Ox 98.3 F 77 20 130/91 H 98 12/25/17 22:00 12/25/17 22:00 12/25/17 22:00 12/25/17 22:00 12/25/17 22:00 - Labs Labs: 12/25/17 08:15 12/25/17 08:15 PT 14.5 SECONDS (9.4-12.5) H 12/21/17 19:50 INR 1.27 12/21/17 19:50 APTT 26.3 Seconds (25.1-36.5) 12/21/17 19:50 Attending/Attestation - Attestation I have personally seen and examined this patient.: Yes I have fully participated in the care of the patient.: Yes I have reviewed all pertinent clinical information, including history, physical exam and plan: Yes Notes (Text): Patient seen and examined by me with resident at 9 AM on 12/25/17. Case includ ing HPI, physical exam, and assessment and plan discussed with resident. Agree with above with following additions/corrections. Patient is a 52-year-old female past medical history significant for chronic back pain that presented to the emergency room with epigastric abdominal pain after taking 2 baclofen pills and two 10 mg Flexeril pills. Patient states she is still not feeling well. Patient is stilling having nausea and vomting. Still with abdominal pain now more in the epigastric region. Perla gandhi states her pain is only better when she sleeps. Patient only able to tolerate liquids. Patient states she tried Reglan with much improvement in her symptoms. Patient denies diarrhea. Patient denies chest pain or palpitations. No headaches or dizziness. No dysuria.No fevers or chills. Physical exam: General: Awake and alert sitting upin bed in no acute distress HEENT: Normocephalic, atraumatic. Extraocular muscles intact, pupils equal and reactive, no scleral icterus. Oropharynx is pink and moist. Neck is supple. Cardiovascular: Regular rhythm. Normal S1 and S2. No murmurs, rubs, or gallops appreciated Pulmonary: Normal respiratory effort. No rhonchi, rales, or wheezing appreciated. Gastrointestinal: Soft. Nondistended. Positive epigastric tenderness. Positive bowel sounds all 4 quadrants. No guarding. Musculoskeletal: Moves all extremities. No calf tenderness. No CVA tenderness. No monica appreciated. Central nervous system: AAO x3, CN 2-12 grossly intact. Dermatologic: Skin warm and dry. Assessment and plan:Patient is a 52-year-old female past medical history signif icant for chronic back pain that presented to the emergency room with epigastric abdominal pain after taking 2 baclofen pills and two 10 mg Flexeril pills. 1. Epigastric abdominal pain. Nausea and vomiting. Still with vomiting. Continue on clear liquids. Patient placed on Reglan. GI following, recommendations appreciated. May need EGD as outpatient. Continue Protonix. Unlikely from taking Baclofen and flexeril. CT abdomen and pelvis per radiologist showed punctate left renal calculi, no hydronephrosis. 2. Taking multiple baclofen and Flexeril. Patient counseled on taking only medications prescribed to her and taking the current dose. Patient states that she took baclofen and Flexeril for muscle and. 3. Diarrhea. Resolved. Continue to monitor. 4. Hypokalemia. Replete potassium. Continue to monitor. 5. Chronic back pain. Continue tramadol as needed. Continue gabapentin. 6. GI prophylaxis. Protonix. 7. DVT prophylaxis. SCDs. Case was discussed in detail with the patient regarding current diagnosis and treatment plan. All questions answered.
--- NOTE | 2017-12-25 08:27 | PN ---
DATE: 12/25/2017 SUBJECTIVE: I saw Mrs. Smith this morning. She is a 52-year-old white female with complaints of nausea, vomiting, and abdominal pain after taking excessive dose of Baclofen and Flexeril. At bedside this morning, the patient's epigastric pain has decreased substantially in which her vomiting has also decreased. She is apparently able to handle some liquids yesterday. She did not try to advance her diet to soft diet after my discussion with the house staff yesterday. The patient indicated no hematemesis or rectal bleeding. PHYSICAL EXAMINATION: VITAL SIGNS: I reviewed this patient's vital signs. HEENT: Noncontributory. LUNGS: Decreased breath sounds, basilar. HEART: Regular rate and rhythm. ABDOMEN: Soft, not tender in the lower quadrants or periumbilical. She is very mildly tender in the epigastric, which is significantly improved relative to day of admission. I reviewed the nursing notes and discussed the patient's clinical status with nurse on the floor. Apparently, there was no significant complaints of abdominal pain last night also. There is no vomiting per se, only spitting. OVERALL ASSESSMENT: This is a 52-year-old white female with nausea, vomiting, abdominal pain. Diarrhea has subsided. Questionable whether may have been some degree of a gastroenteritis associated with this episode since the patient is chronically improved over the last 24 hours. Note that the medications taken would not be associated with induction of nausea, vomiting and diarrhea. Abdominal pain would not be seen as well. I discussed with the house staff yesterday that this scenario had possibly gastroenteritis component with an excessive dose of some nonsteroidal antiinflammatory drug for pain control. Note that she has had a problem with analgesics for her back pain for quite some time. I advised her to discuss the issue of back pain control with her PMD after discharge. I discussed the issue of antireflux precautions again with this patient in detail as well as the use of proton pump inhibitors, especially one dose half hour before breakfast in the morning at least in the next several weeks. If needed, she can also use another PPI for example if not pantoprazole, omeprazole or Nexium, etc half hour before dinner to speed resolution of symptoms. I reviewed the issue with her, possibility of an ulcer either in the esophagus or stomach area. Endoscopic evaluation was reviewed with the patient in detail. Note that there was no room on the endoscopy schedule Wednesday, Wednesday or Wednesday given my schedule. If the patient elected to have an EGD performed, this could possibly be performed as an outpatient on morning. Her overall assessment has improved over the past 24 hours. I think she could possibly do well with the trial of liquid diet and subsequently soft consistency today. Discharge disposition would be at the request of the house staff. Again, her main issues would be intake of proton pump inhibitors which seems to be helping her quite a bit as well as antireflux precautions. Yon Maher DO, PhD MTDGm
[2017-12-25 08:35] LABS: BASO # 0.04 K/mm3 (0.0-2.0); BASO % 0.6 % (0.0-3.0); EOS # 0.1 (0.0-0.7); EOS % 0.7 % (1.5-5.0); GRAN # 2.74 (1.4-6.5); GRAN % 41.1 % (50.0-68.0); LYMPH # 3.2 (1.2-3.4); MEAN CELL VOLUME 90.5 fl (80.0-105.0); MEAN CORPUSCULAR HEMOGLOBIN 31.7 pg (25.0-35.0); MEAN CORPUSCULAR HGB CONC 35.1 g/dl (31.0-37.0); MEAN PLATELET VOLUME 11.6 fl (7.0-11.0); MONO # 0.6 (0.1-0.6); MONO % 9.6 % (1.0-6.0); RBC 4.41 10^6/uL (3.5-6.1); RED CELL DISTRIBUTION WIDTH 12.2 % (11.5-14.5); WHITE BLOOD COUNT 6.7 10^3/uL (4.5-11.0)
[2017-12-25 08:54] LABS: ALB/GLOB RATIO 1.1 (1.1-1.8); ALBUMIN 4.1 g/dL (3.0-4.8); ALT/SGPT 43 U/L (7-56); AST/SGOT 38 U/L (14-36); BLOOD UREA NITROGEN 7 mg/dL (7-21); GFR NON-AFRICAN AMERICAN > 60
[2017-12-25] MEDS ORDERED: Potassium Chloride 20 mEq ER Tab PO STA (09:00)
[2017-12-25] MEDS ORDERED: Sucralfate 1 gm/10 ml Oral Susp UD PO SCH (16:00)
[2017-12-25 22:18] VITALS: BP 130/91; PULSE 77; RESP 20; TEMP 98.3; O2SAT 98
--- NOTE | 2017-12-26 20:10 | CP.PCM.DIS ---
<Tl Mcneil - Last Filed: 12/26/17 19:55> Provider - Provider Date of Admission: 12/24/17 07:08 Attending physician: Maki Hernandez DO Primary care physician: Yasmany Alva MD Consults: GI: Dr. Maher Time Spent in preparation of Discharge (in minutes): 35 Hospital Course - Lab Results Lab Results: Most Recent Lab Values WBC 6.7 10^3/uL (4.5-11.0) 12/25/17 08:15 RBC 4.41 10^6/uL (3.5-6.1) 12/25/17 08:15 Hgb 14.0 g/dL (12.0-16.0) 12/25/17 08:15 Hct 39.9 % (36.0-48.0) 12/25/17 08:15 MCV 90.5 fl (80.0-105.0) 12/25/17 08:15 MCH 31.7 pg (25.0-35.0) 12/25/17 08:15 MCHC 35.1 g/dl (31.0-37.0) 12/25/17 08:15 RDW 12.2 % (11.5-14.5) 12/25/17 08:15 Plt Count 159 10^3/uL (120.0-450.0) 12/25/17 08:15 MPV 11.6 fl (7.0-11.0) H 12/25/17 08:15 Gran % 41.1 % (50.0-68.0) L 12/25/17 08:15 Lymph % (Auto) 48.0 % (22.0-35.0) H 12/25/17 08:15 [place] % (Auto) 9.6 % (1.0-6.0) H 12/25/17 08:15 Eos % (Auto) 0.7 % (1.5-5.0) L 12/25/17 08:15 Baso % (Auto) 0.6 % (0.0-3.0) 12/25/17 08:15 Gran # 2.74 (1.4-6.5) 12/25/17 08:15 Lymph # (Auto) 3.2 (1.2-3.4) 12/25/17 08:15 [place] # (Auto) 0.6 (0.1-0.6) 12/25/17 08:15 Eos # (Auto) 0.1 (0.0-0.7) 12/25/17 08:15 Baso # (Auto) 0.04 K/mm3 (0.0-2.0) 12/25/17 08:15 PT 14.5 SECONDS (9.4-12.5) H 12/21/17 19:50 INR 1.27 12/21/17 19:50 APTT 26.3 Seconds (25.1-36.5) 12/21/17 19:50 Sodium 136 mmol/L (132-148) 12/25/17 08:15 Potassium 3.4 mmol/L (3.6-5.0) L 12/25/17 08:15 Chloride 103 mmol/L (98-107) 12/25/17 08:15 Carbon Dioxide 23 mmol/L (21-33) 12/25/17 08:15 Anion Gap 14 (10-20) 12/25/17 08:15 BUN 7 mg/dL (7-21) 12/25/17 08:15 Creatinine 0.6 mg/dl (0.7-1.2) L 12/25/17 08:15 Est GFR ( Amer) > 60 12/25/17 08:15 Est GFR (Non-Af Amer) > 60 12/25/17 08:15 Random Glucose 100 mg/dL (70-110) 12/25/17 08:15 Hemoglobin A1c 5.5 % (4.2-6.5) 12/25/17 08:30 Calcium 9.0 mg/dL (8.4-10.5) 12/25/17 08:15 Phosphorus 2.7 mg/dL (2.5-4.5) 12/22/17 06:30 Magnesium 2.2 mg/dL (1.7-2.2) 12/22/17 06:30 Total Bilirubin 1.3 mg/dL (0.2-1.3) 12/25/17 08:15 AST 38 U/L (14-36) H D 12/25/17 08:15 ALT 43 U/L (7-56) 12/25/17 08:15 Alkaline Phosphatase 74 U/L (38-126) 12/25/17 08:15 Lactate Dehydrogenase 476 U/L (333-699) 12/21/17 19:50 Total Creatine Kinase 79 U/L (35-230) 12/21/17 19:50 Troponin I < 0.01 ng/mL 12/21/17 19:50 Total Protein 7.7 g/dL (5.8-8.3) 12/25/17 08:15 Albumin 4.1 g/dL (3.0-4.8) 12/25/17 08:15 Globulin 3.6 gm/dL 12/25/17 08:15 Albumin/Globulin Ratio 1.1 (1.1-1.8) 12/25/17 08:15 Triglycerides 78 mg/dL (35-160) 12/22/17 06:30 Cholesterol 207 mg/dL (130-200) H 12/22/17 06:30 LDL Cholesterol Direct 127 mg/dL (0-129) 12/22/17 06:30 HDL Cholesterol 52 mg/dL (29-60) 12/22/17 06:30 Amylase 94 U/L (35-125) 12/21/17 19:50 Lipase 120 U/L (23-300) 12/21/17 19:50 Urine Color Yellow (YELLOW) 12/22/17 00:40 Urine Appearance Sl cloudy (CLEAR) 12/22/17 00:40 Urine pH 6.0 (4.7-8.0) 12/22/17 00:40 Ur Specific [place] >= 1.030 (1.005-1.035) 12/22/17 00:40 Urine Protein Negative mg/dL (<30 mg/dL) 12/22/17 00:40 Urine Glucose (UA) Negative mg/dL (NEGATIVE) 12/22/17 00:40 Urine Ketones >=80 mg/dL (NEGATIVE) 12/22/17 00:40 Urine Blood Moderate (NEGATIVE) H 12/22/17 00:40 Urine Nitrate Negative (NEGATIVE) 12/22/17 00:40 Urine Bilirubin Negative (NEGATIVE) 12/22/17 00:40 Urine Urobilinogen 0.2 E.U./dL (<1 E.U./dL) 12/22/17 00:40 Ur Leukocyte Esterase Negative Neva/uL (NEGATIVE) 12/22/17 00:40 Urine RBC 2 - 5 /hpf (0-2) 12/22/17 00:40 Urine WBC 0 - 2 /hpf (0-6) 12/22/17 00:40 Ur Epithelial Cells 1 - 3 /hpf (0-5) 12/22/17 00:40 Urine Bacteria Trace (NEG) 12/22/17 00:40 Urine Opiates Screen Positive (NEGATIVE) H 12/22/17 00:40 Urine Methadone Screen Negative (NEGATIVE) 12/22/17 00:40 Ur Barbiturates Screen Negative (NEGATIVE) 12/22/17 00:40 Ur Phencyclidine Scrn Negative (NEGATIVE) 12/22/17 00:40 Ur Amphetamines Screen Negative (NEGATIVE) 12/22/17 00:40 U Benzodiazepines Scrn Negative (NEGATIVE) 12/22/17 00:40 U Oth Cocaine Metabols Negative (NEGATIVE) 12/22/17 00:40 U Cannabinoids Screen Negative (NEGATIVE) 12/22/17 00:40 - Hospital Course Hospital Course: Upon admission: This is a 52 year old female with PMH of chronic back pain presented to ED following overdose of baclofen and flexiril. She stated that she took 2 baclofen and 2 10 mg tablets of flexiril. She took these to get relief from back pain as she ran out of her prescription vicodin recently. She stated she has had back pain for the past year ever since she slipped and fell in her home. She normally follows with her PMD for pain management. She stated that she took the baclofen and flexiril at the recommendation of a friend who stated it would help with pain. She denies suicidal ideation or intent and states that she took the pills for relief of back pain and not for self-harm. She endorses epigastric abdominal pain, nausea, and vomiting since taking the pills but denies fever/chills, CP, SOB, dizziness, ANAND, or changes in vision. During hospital course, patient was treated for epigastric pain, nausea, vomiting, hypokalemia and elevated LDL. Epigastric pain likely 2/2 peptic ulcer disease. Considered other etiologies including gastritis, gastroparesis and gastroenteritis. Unlikely from pancreatitis and cholecystitis. LFT, total bilirubin and lipase are WNL. CT abd/pelvis showed punctate left renal calculi. No hydronephrosis. Patient started on protonix 40 IV daily and given carafate and reglan 5 mg IV for 3 doses. Zofran was discontinued. EKG on 12/22 was reviewed and noted to have QTc of 448 ms. Patient also noted to have potassium of 3.4 and was repleted. Patient had elevated LDL and patient counseled and agreed with diet and exercise. Patient eloped without signing AMA form on the night of 12/25/17. Discharge Exam - Additional Findings Additional findings: - Constitutional Appears: Non-toxic, No Acute Distress - Head Exam Head Exam: ATRAUMATIC, NORMOCEPHALIC - Eye Exam Eye Exam: EOMI, PERRL. absent: Conjunctival injection, Nystagmus, Scleral icter us Pupil Exam: NORMAL ACCOMODATION, PERRL. absent: Irregular, Miosis, Unequal - ENT Exam ENT Exam: Mucous Membranes Moist - Neck Exam Neck Exam: Full ROM - Respiratory Exam Respiratory Exam: Clear to Ausculation Bilateral, NORMAL BREATHING PATTERN. absent: Accessory Muscle Use, Rhonchi, Wheezes - Cardiovascular Exam Cardiovascular Exam: RRR, +S1, +S2. absent: Murmur - GI/Abdominal Exam GI & Abdominal Exam: Soft, Tenderness (epigastric), Hyperactive Bowel Sounds. absent: Distended, Firm, Guarding Additional comments: stretch pisano appreciated on abdomen B/L - Extremities Exam Extremities Exam: Normal Inspection. absent: Calf Tenderness, Pedal Edema - Back Exam Back Exam: NORMAL INSPECTION. absent: CVA tenderness (L), CVA tenderness (R) - Neurological Exam Neurological Exam: Alert, Awake, Oriented x3 - Psychiatric Exam Psychiatric exam: Normal Affect, Normal Mood - Skin Skin Exam: Dry, Normal Color, Warm Discharge Plan - Follow Up Plan Condition: FAIR Disposition: ELOPED FROM NURSING UNIT Additional Instructions: - Please follow up with your primary care doctor Dr. Chery within 3-5 days after discharge. - Follow up with your Pain Management Doctor Sj within 3-5 days regarding your refill. - Please do not substitute medications if pain relief is required. It can be dangerous to take other medications not prescribed as per your doctor. - Please only take the medications prescribed to you and as directed to prevent any future toxicities - If your symptoms return, worsen or if new symptoms begin please return to the emergency room Referrals: Yasmany Alva [Primary Care Provider] - <Maki Hernandez R - Last Filed: 12/27/17 16:34> Provider - Provider Date of Admission: 12/24/17 07:08 Attending physician: Maki Hernandez DO Primary care physician: Yasmany Alva MD [facility] Course - Lab Results Lab Results: Most Recent Lab Values WBC 6.7 10^3/uL (4.5-11.0) 12/25/17 08:15 RBC 4.41 10^6/uL (3.5-6.1) 12/25/17 08:15 Hgb 14.0 g/dL (12.0-16.0) 12/25/17 08:15 Hct 39.9 % (36.0-48.0) 12/25/17 08:15 MCV 90.5 fl (80.0-105.0) 12/25/17 08:15 MCH 31.7 pg (25.0-35.0) 12/25/17 08:15 MCHC 35.1 g/dl (31.0-37.0) 12/25/17 08:15 RDW 12.2 % (11.5-14.5) 12/25/17 08:15 Plt Count 159 10^3/uL (120.0-450.0) 12/25/17 08:15 MPV 11.6 fl (7.0-11.0) H 12/25/17 08:15 Gran % 41.1 % (50.0-68.0) L 12/25/17 08:15 Lymph % (Auto) 48.0 % (22.0-35.0) H 12/25/17 08:15 [place] % (Auto) 9.6 % (1.0-6.0) H 12/25/17 08:15 Eos % (Auto) 0.7 % (1.5-5.0) L 12/25/17 08:15 Baso % (Auto) 0.6 % (0.0-3.0) 12/25/17 08:15 Gran # 2.74 (1.4-6.5) 12/25/17 08:15 Lymph # (Auto) 3.2 (1.2-3.4) 12/25/17 08:15 [place] # (Auto) 0.6 (0.1-0.6) 12/25/17 08:15 Eos # (Auto) 0.1 (0.0-0.7) 12/25/17 08:15 Baso # (Auto) 0.04 K/mm3 (0.0-2.0) 12/25/17 08:15 PT 14.5 SECONDS (9.4-12.5) H 12/21/17 19:50 INR 1.27 12/21/17 19:50 APTT 26.3 Seconds (25.1-36.5) 12/21/17 19:50 Sodium 136 mmol/L (132-148) 12/25/17 08:15 Potassium 3.4 mmol/L (3.6-5.0) L 12/25/17 08:15 Chloride 103 mmol/L (98-107) 12/25/17 08:15 Carbon Dioxide 23 mmol/L (21-33) 12/25/17 08:15 Anion Gap 14 (10-20) 12/25/17 08:15 BUN 7 mg/dL (7-21) 12/25/17 08:15 Creatinine 0.6 mg/dl (0.7-1.2) L 12/25/17 08:15 Est GFR ( Amer) > 60 12/25/17 08:15 Est GFR (Non-Af Amer) > 60 12/25/17 08:15 Random Glucose 100 mg/dL (70-110) 12/25/17 08:15 Hemoglobin A1c 5.5 % (4.2-6.5) 12/25/17 08:30 Calcium 9.0 mg/dL (8.4-10.5) 12/25/17 08:15 Phosphorus 2.7 mg/dL (2.5-4.5) 12/22/17 06:30 Magnesium 2.2 mg/dL (1.7-2.2) 12/22/17 06:30 Total Bilirubin 1.3 mg/dL (0.2-1.3) 12/25/17 08:15 AST 38 U/L (14-36) H D 12/25/17 08:15 ALT 43 U/L (7-56) 12/25/17 08:15 Alkaline Phosphatase 74 U/L (38-126) 12/25/17 08:15 Lactate Dehydrogenase 476 U/L (333-699) 12/21/17 19:50 Total Creatine Kinase 79 U/L (35-230) 12/21/17 19:50 Troponin I < 0.01 ng/mL 12/21/17 19:50 Total Protein 7.7 g/dL (5.8-8.3) 12/25/17 08:15 Albumin 4.1 g/dL (3.0-4.8) 12/25/17 08:15 Globulin 3.6 gm/dL 12/25/17 08:15 Albumin/Globulin Ratio 1.1 (1.1-1.8) 12/25/17 08:15 Triglycerides 78 mg/dL (35-160) 12/22/17 06:30 Cholesterol 207 mg/dL (130-200) H 12/22/17 06:30 LDL Cholesterol Direct 127 mg/dL (0-129) 12/22/17 06:30 HDL Cholesterol 52 mg/dL (29-60) 12/22/17 06:30 Amylase 94 U/L (35-125) 12/21/17 19:50 Lipase 120 U/L (23-300) 12/21/17 19:50 Urine Color Yellow (YELLOW) 12/22/17 00:40 Urine Appearance Sl cloudy (CLEAR) 12/22/17 00:40 Urine pH 6.0 (4.7-8.0) 12/22/17 00:40 Ur Specific [place] >= 1.030 (1.005-1.035) 12/22/17 00:40 Urine Protein Negative mg/dL (<30 mg/dL) 12/22/17 00:40 Urine Glucose (UA) Negative mg/dL (NEGATIVE) 12/22/17 00:40 Urine Ketones >=80 mg/dL (NEGATIVE) 12/22/17 00:40 Urine Blood Moderate (NEGATIVE) H 18 00:40 Urine Nitrate Negative (NEGATIVE) 12/22/17 00:40 Urine Bilirubin Negative (NEGATIVE) 12/22/17 00:40 Urine Urobilinogen 0.2 E.U./dL (<1 E.U./dL) 18 00:40 Ur Leukocyte Esterase Negative Neva/uL (NEGATIVE) 12/22/17 00:40 Urine RBC 2 - 5 /hpf (0-2) 12/22/17 00:40 Urine WBC 0 - 2 /hpf (0-6) 12/22/17 00:40 Ur Epithelial Cells 1 - 3 /hpf (0-5) 12/22/17 00:40 Urine Bacteria Trace (NEG) 12/22/17 00:40 Urine Opiates Screen Positive (NEGATIVE) H 12/22/17 00:40 Urine Methadone Screen Negative (NEGATIVE) 12/22/17 00:40 Ur Barbiturates Screen Negative (NEGATIVE) 12/22/17 00:40 Ur Phencyclidine Scrn Negative (NEGATIVE) 12/22/17 00:40 Ur Amphetamines Screen Negative (NEGATIVE) 12/22/17 00:40 U Benzodiazepines Scrn Negative (NEGATIVE) 12/22/17 00:40 U Oth Cocaine Metabols Negative (NEGATIVE) 12/22/17 00:40 U Cannabinoids Screen Negative (NEGATIVE) 12/22/17 00:40 Attending/Attestation - Attestation I have personally seen and examined this patient.: Yes I have fully participated in the care of the patient.: Yes I have reviewed all pertinent clinical information, including history, physical exam and plan: Yes Notes (Text): Please note this summary is for 12/26/17. Patient was not seen and examined by me on 12/26/17 when she eloped. Case discussed with resident. Agree with above with following additions/corrections. Patient is a 52-year-old female past medical history significant for chronic back pain that presented to the emergency room with epigastric abdominal pain after taking 2 baclofen pills and two 10 mg Flexeril pills. Please see H&P for full details. Patient was admitted with baclofen and flexeril overdose, epigastric pain, and nausea and vomiting. Poison control was notified. Patient continued to have epigastric pain, nausea and vomiting. GI was consulted. Unlikely from taking extra flexeril and baclofen. Patient was only able to tolerate clear liquids. Patient was initially placed on Zofran with some improvement. Patient was then started on Reglan with symptom relief. Patient did have episode of diarrhea that resolved. Patient had hypokalemia and potassium was repleted. Patient was continued on gabapentin for chronic back pain. Patient was counseled on taking only medications prescribed to her and taking the correct dose. Patient eloped 12/26/17 night. Please see chart for full details.
== END 2017-12-26 02:50 | disposition left against medical advice (07) | DRG 392 ==
LOC: ED 18:54 → ERH 21:42 → 2RSO 23:53 → OBSVTOIN 12-24 07:08 → 5RNO 12-25 10:30 → 5RSO 12-26 00:20
PROVIDERS: ADMIT Hospitalist; ATTEND Hospitalist
DX: R10.13 Epigastric pain (principal); R11.2 Nausea with vomiting, unspecified; T48.1X1A Poisoning by skeletal muscle relaxants [neuromuscular blocking agents], accidental (unintentional), initial encounter; T42.8X1A Poisoning by antiparkinsonism drugs and other central muscle-tone depressants, accidental (unintentional), initial encounter; G89.29 Other chronic pain; M54.9 Dorsalgia, unspecified; E87.6 Hypokalemia; F17.210 Nicotine dependence, cigarettes, uncomplicated; G47.00 Insomnia, unspecified; K27.9 Peptic ulcer, site unspecified, unspecified as acute or chronic, without hemorrhage or perforation; N20.0 Calculus of kidney; Z91.81 History of falling; Z79.82 Long term (current) use of aspirin; Z83.3 Family history of diabetes mellitus; R19.7 Diarrhea, unspecified

== ENCOUNTER 2017-12-26 23:50 | Inpatient (IN) | payer BC ==
[2017-12-27] MEDS ORDERED: Sodium Chloride 0.9% 500 ML IV SCH (00:15)
[2017-12-27] MEDS ORDERED: Sodium Chloride 0.9% 500 ML IV STA (00:19)
--- NOTE | 2017-12-27 00:31 | ED PDOC ---
Arrival/HPI - General Historian: Patient - Critical Care Critical Care Minutes: 30 minutes - History of Present Illness Narrative History of Present Illness (Text): 12/27/17 00:31 52 year old female with PMH of chronic back pain presented to ED following leaving AMA at 3a.m. this morning from [facility] for abdominal pain. Patient was admitted for overdose of flexeril, however left the hospital last night when she became upset with being moved to a different room. After returning home, patient reports nausea and vomiting. Patient also reports diarrhea in conjunction with the symptoms. She denies any fevers, chills, chest pain, shortness of breath, changes in vision, syncopal episodes, or any other complaints. PMD: Yasmany Past Medical Hx: chronic back pain Past Surgical Hx: b/l hip surgeries Allergies: PCN Home medications: ASA 81 mg daily, gabapentin 100 TID Family Hx: mother had DM2 Social Hx: admits to smoking 1-2 cigarettes per day for the past 20 years, denies alcohol or illicit drug use. Time/Duration: 24 hours Symptom Onset: Gradual Symptom Course: Unchanged Quality: Fullness Severity Level: 5 Activities at Onset: Rest Context: Sitting <Trenton Juan - Last Filed: 12/27/17 02:35> Past Medical History - Provider Review Nursing Documentation Reviewed: Yes - Tetanus Immunization Tetanus Immunization: Unknown - Musculoskeletal/Rheumatological Hx Arthritis: Yes (hips B/L - laser surgery with injections) Hx Falls: No - Psychiatric Hx Psychophysiologic Disorder: No Hx Substance Use: No - Surgical History Other/Comment: on hips bilaterally - laser surgery with injections as per patient. <Trenton Juan - Last Filed: 12/27/17 02:35> Family/Social History - Physician Review Nursing Documentation Reviewed: Yes Family/Social History: No Known Family HX Smoking Status: Light Smoker < 10 Cigarettes Daily Hx Alcohol Use: Yes Hx Substance Use: No <Trenton Juan - Last Filed: 12/27/17 02:35> Allergies/Home Meds <Trenton Juan - Last Filed: 12/27/17 02:35> <Prieto Snyder - Last Filed: 12/27/17 06:10> Allergies/Adverse Reactions: Allergies Penicillins Allergy (Verified 08/25/15 04:49) RASH Home Medications: Home Meds Medication Instructions Recorded Confirmed RX: Acetaminophen/Hydrocodone Bi 1 tab PO Q6 PRN 12/22/17 12/27/17 [Vicodin 300 mg-5 mg] RX: traMADol [Ultram] 50 mg PO Q6 12/22/17 12/27/17 Review of Systems - Physician Review All systems were reviewed & negative as marked: Yes - Review of Systems Constitutional: Normal. absent: Fatigue Eyes: Normal. absent: Vision Changes, Photophobia ENT: Normal. absent: Hearing Changes, Tinnitus, Epistaxis Respiratory: Normal. absent: SOB, Cough Cardiovascular: Normal. absent: Chest Pain, Palpitations, Syncope Gastrointestinal: Abdominal Pain, Diarrhea, Nausea, Vomiting Musculoskeletal: Normal. absent: Arthralgias, Back Pain, Neck Pain Skin: Normal. absent: Rash, Pruritis, Skin Lesions Neurological: Normal. absent: Headache, Dizziness, Focal Weakness, Seizure Psychiatric: Normal. absent: Anxiety, Depression, Suicidal Ideation <Trenton Juan - Last Filed: 12/27/17 02:35> Physical Exam Vital Signs Reviewed: Yes Vital Signs Temp Pulse Resp BP Pulse Ox 12/27/17 00:06 98.2 F 78 18 136/90 100 12/26/17 23:57 80 19 98 Temperature: Afebrile Pulse: Regular Respiratory Rate: Normal Appearance: Positive for: Well-Appearing, Non-Toxic, Comfortable. No: Ill- Appearing Pain Distress: None Mental Status: Positive for: Alert and Oriented X 3 - Systems Exam Head: Present: Atraumatic, Normocephalic. No: Abrasion, Laceration Pupils: Present: PERRL. No: Sluggish, Non-Reactive Extroacular Muscles: Present: EOMI. No: Gaze Palsy, Entrapment Conjunctiva: Present: Normal. No: Injected, Icteric Mouth: Present: Moist Mucous Membranes. No: Dry, Normal Teeth Neck: Present: Normal Range of Motion. No: Meningeal Signs, JVD Respiratory/Chest: Present: Clear to Auscultation, Good Air Exchange. No: Wheezes Cardiovascular: Present: Regular Rate and Rhythm, Normal S1, S2. No: Tachycardic, Bradycardic Abdomen: Present: Normal Bowel Sounds. No: Tenderness, McBurney's Point Tender, Ostomy Tubes Upper Extremity: Present: Normal Inspection. No: Edema Lower Extremity: Present: Normal Inspection. No: Edema, Normal ROM, Jarrell's Sign Neurological: Present: CN II-XII Intact, Speech Normal. No: Normal Cerebellar Funct, Gait Normal Skin: Present: Dry, Normal Color Psychiatric: Present: Alert, Oriented x 3, Normal Insight, Normal Concentration <Trenton Juan - Last Filed: 12/27/17 02:35> Vital Signs Temp Pulse Resp BP Pulse Ox 12/27/17 00:06 98.2 F 78 18 136/90 100 12/26/17 23:57 80 19 98 <Prieto Snyder - Last Filed: 12/27/17 06:10> Medical Decision Making ED Course and Treatment: 12/27/17 00:37 52 year old female with a past medical history of back pain presents to the hospital for nausea, vomiting, and diarrhea. Plan: CBC CMP Urinanalysis EKG IV fluids Zofran 12/27/17 02:35 Toradol given. Patient accepted to Hospitalist service. - RAD Interpretation Radiology Orders: 12/27/17 00:11 CHEST PORTABLE [RAD] Stat - Medication Orders Current Medication Orders: Sodium Chloride (Sodium Chloride 0.9%) 500 mls @ 999 mls/hr IV .Q31M STA Stop: 12/27/17 00:49 Discontinued Medications Ondansetron HCl (Zofran Inj) 4 mg IVP STAT STA Stop: 12/27/17 00:22 <Trenton Juan - Last Filed: 12/27/17 02:35> ED Course and Treatment: Impression: Pt seen and evaluated with medical administrator. Aware and agrees with plan. Pt, whose past medical history includes chronic back pain, presented for abdominal pain. Pt left the hospital AMA yesterday Plan: -- Labs -- Urinalysis -- IV fluids -- Zofran -- Reassess and disposition Progress Notes: - RAD Interpretation Radiology Orders: 12/27/17 00:11 CHEST PORTABLE [RAD] Stat - Medication Orders Current Medication Orders: Discontinued Medications Sodium Chloride (Sodium Chloride 0.9%) 500 mls @ 999 mls/hr IV .Q31M STA Stop: 12/27/17 00:49 Last Admin: 12/27/17 00:20 Dose: 999 mls/hr eMAR Start Stop Document 12/27/17 00:20 AD (Rec: 12/27/17 00:38 AD [id number]) Intravenous Solution Start Date 12/27/17 Start Time 00:20 Ondansetron HCl (Zofran Inj) 4 mg IVP STAT STA Stop: 12/27/17 00:22 Last Admin: 12/27/17 00:25 Dose: 4 mg IVP Administration Document 12/27/17 00:25 AD (Rec: 12/27/17 00:38 AD [id number]) Charges for Administration # of IVP Administrations 1 <Prieto Snyder - Last Filed: 12/27/17 06:10> - PA / DIRECTOR OF SEARCH ENGINE OPTIMIZATION / Resident Statement / has reviewed & agrees with the documentation as recorded. / has examined the patient and agrees with the treatment plan. <Prieto Sndyer - Last Filed: 12/27/17 06:10> Disposition/Present on Arrival - Present on Arrival Any Indicators Present on Arrival: No History of DVT/PE: No History of Uncontrolled Diabetes: No Urinary Catheter: No History of Decub. Ulcer: No History Surgical Site Infection Following: None - Disposition Have Diagnosis and Disposition been Completed?: Yes Disposition Time: 01:48 Patient Plan: Admission <Trenton Juan - Last Filed: 12/27/17 02:35> <Prieto Snyder - Last Filed: 12/27/17 06:10> - Disposition Diagnosis: Abdominal pain Disposition: HOSPITALIZED Patient Problems: Current Active Problems Problem Status Onset Abdominal pain Acute Condition: GUARDED
[2017-12-27 00:44] LABS: URINE BILIRUBIN NEGATIVE (NEGATIVE); URINE BLOOD SMALL (NEGATIVE); URINE GLUCOSE (UA) NEGATIVE (NEGATIVE); URINE LEUKOCYTE ESTERASE NEGATIVE Leu/uL (NEGATIVE); URINE PROTEIN NEGATIVE mg/dL (<30 mg/dL); URINE UROBILINOGEN 0.2 E.U./dL (<1 E.U./dL)
[2017-12-27 00:46] LABS: BASO # 0.05 K/mm3 (0.0-2.0); BASO % 0.6 % (0.0-3.0); EOS # 0.1 (0.0-0.7); EOS % 1.6 % (1.5-5.0); GRAN # 3.22 (1.4-6.5); GRAN % 41.7 % (50.0-68.0); HEMOGLOBIN 15.1 g/dL (12.0-16.0); LYMPH # 3.5 (1.2-3.4); MEAN CORPUSCULAR HEMOGLOBIN 32.3 pg (25.0-35.0); MEAN CORPUSCULAR HGB CONC 35.4 g/dl (31.0-37.0); MEAN PLATELET VOLUME 12.2 fl (7.0-11.0); MONO # 0.9 (0.1-0.6); MONO % 11.1 % (1.0-6.0); RBC 4.68 10^6/uL (3.5-6.1); RED CELL DISTRIBUTION WIDTH 12.5 % (11.5-14.5); WHITE BLOOD COUNT 7.7 10^3/uL (4.5-11.0)
[2017-12-27 00:50] LABS: URINE APPEARANCE CLEAR (CLEAR); URINE COLOR YELLOW (YELLOW)
[2017-12-27 00:59] LABS: URINE BACTERIA FEW (NEG); URINE WBC 0 - 2 /hpf (0-6)
[2017-12-27 01:01] LABS: ALB/GLOB RATIO 1.2 (1.1-1.8); ALBUMIN 4.6 g/dL (3.0-4.8); ALT/SGPT 48 U/L (7-56); AST/SGOT 31 U/L (14-36); BLOOD UREA NITROGEN 10 mg/dL (7-21); CALCIUM 9.8 mg/dL (8.4-10.5); GFR NON-AFRICAN AMERICAN > 60; LIPASE 378 U/L (23-300)
[2017-12-27] MEDS ORDERED: Morphine 2 mg/ml ISec IVP STA (01:09)
--- NOTE | 2017-12-27 02:57 | CP.PCM.HP ---
<Vitaly He - Last Filed: 12/27/17 03:23> History of Present Illness - History of Present Illness History of Present Illness: Vitaly He PGY1 History and Physical for Dr Garcia Pt is a 52 yo female with a PMH of chronic back pain who presented to the ED after [place] last night [place] [facility] Patient was admitted for overdose of flexeril, however left the hospital last night when she became upset with being moved to a different room. Pt states she experienced 10 episodes of vomiting all throughout the day. She also reports 5 episodes of diarrhea which was non bloody and non billious. Pt denies any sick contacts. Pt states she has been experiencing nausea and abdominal pain which she describes as stabbing and periumbilical. Pt denies any urinary symptoms. A 12 point ROS was obtained and added to the HPI where appropriate. PMH: chronic back pain PSH: denies FH: mother had DM2 SH: admits to smoking 1-2 cigarettes per day for the past 20 years, denies alcohol or illicit drug use. Home meds: denies Allergies: PCN, hives PMD: Yasmany Present on Admission - Present on Admission Any Indicators Present on Admission: No Review of Systems - Review of Systems Review of Systems: a 12 point ROS was obtained and added to the HPI where appropriate Past Patient History - Tetanus Immunizations Tetanus Immunization: Unknown - Past Social History Smoking Status: Light Smoker < 10 Cigarettes Daily - MUSCULOSKELETAL/RHEUMATOLOGICAL Hx Arthritis: Yes (hips B/L - laser surgery with injections) Hx Falls: No - PSYCHIATRIC Hx Psychophysiologic Disorder: No Hx Substance Use: No - SURGICAL HISTORY Other/Comment: on hips bilaterally - laser surgery with injections as per patient. Meds Allergies/Adverse Reactions: Allergies Allergy/AdvReac Type Severity Reaction Status Date / Time Penicillins Allergy RASH Verified 08/25/15 04:49 Physical Exam - Constitutional Appears: Non-toxic, No Acute Distress - Head Exam Head Exam: ATRAUMATIC, NORMAL INSPECTION, NORMOCEPHALIC - Eye Exam Eye Exam: EOMI - ENT Exam ENT Exam: Mucous Membranes Moist - Neck Exam Neck exam: Positive for: Full Rom - Respiratory Exam Respiratory Exam: Clear to Auscultation Bilateral, NORMAL BREATHING PATTERN. absent: Accessory Muscle Use, Wheezes - Cardiovascular Exam Cardiovascular Exam: +S1, +S2. absent: Diastolic murmur, Systolic Murmur - GI/Abdominal Exam GI & Abdominal Exam: Normal Bowel Sounds, Soft Additional comments: mild tenderness to palpation - Extremities Exam Extremities exam: Positive for: full ROM, pedal pulses present. Negative for: calf tenderness, pedal edema - Neurological Exam Neurological exam: Alert, Oriented x3 - Psychiatric Exam Psychiatric exam: Normal Affect, Normal Mood - Skin Skin Exam: Dry, Intact, Warm Results - Vital Signs Recent Vital Signs: Last Vital Signs Temp 98.6 F 12/27/17 02:08 Pulse 65 12/27/17 02:08 Resp 20 12/27/17 02:08 BP 150/88 12/27/17 02:08 Pulse Ox 100 12/27/17 02:08 - Labs Result Diagrams: 12/27/17 00:15 12/27/17 00:15 Labs: Laboratory Results - last 24 hr 12/27/17 12/27/17 12/27/17 00:15 00:15 00:15 WBC 7.7 RBC 4.68 Hgb 15.1 Hct 42.6 MCV 91.0 MCH 32.3 MCHC 35.4 RDW 12.5 Plt Count 192 MPV 12.2 H Gran % 41.7 L Lymph % (Auto) 45.0 H Dup[place] % (Auto) 11.1 H Eos % (Auto) 1.6 Baso % (Auto) 0.6 Gran # 3.22 Lymph # (Auto) 3.5 H [place] # (Auto) 0.9 H Eos # (Auto) 0.1 Baso # (Auto) 0.05 Sodium 138 Potassium 3.3 L Chloride 99 Carbon Dioxide 28 Anion Gap 15 BUN 10 Creatinine 0.7 Est GFR ( Amer) > 60 Est GFR (Non-Af Amer) > 60 Random Glucose 107 Calcium 9.8 Total Bilirubin 0.9 AST 31 ALT 48 Alkaline Phosphatase 76 Total Protein 8.4 H Albumin 4.6 Globulin 3.8 Albumin/Globulin Ratio 1.2 Lipase 378 H Urine Color Yellow Urine Appearance Clear Urine pH 6.0 Ur Specific [place] 1.020 Urine Protein Negative Urine Glucose (UA) Negative Urine Ketones Negative Urine Blood Small H Urine Nitrate Negative Urine Bilirubin Negative Urine Urobilinogen 0.2 Ur Leukocyte Esterase Negative Urine RBC 2 - 5 Urine WBC 0 - 2 Ur Epithelial Cells 3 - 4 Urine Bacteria Few Assessment & Plan - Assessment and Plan (Free Text) Assessment: Pt is a 52 yo female with a PMH of chronic back pain who presented to the ED after leaving [place]MA last night [place] [facility] Patient was admitted for overdose of flexeril, however left the hospital last night when she became upset with being moved to a different room. Pt states she experienced 10 episodes of vomiting all throughout the day. Plan: Intractable Nausea/ Vomiting/ Diarrhea - UDS - amylase - HA1C - Lipase - TSH - Mg - Phos - C. diff - Stool culture - morphine 2mg q4 - IVF NS125 - pantoprazole - NPO - GI consult, Dr Maher Hypokalemia - 3.3 on admission - replete PRN Ppx - lovenox Pt seen, examined, assessment and plan discussed with Dr Radha He PGY1 - Date & Time Date: 12/27/17 Time: 03:14 <Mauro Garcia - Last Filed: 12/27/17 06:17> Results - Vital Signs Recent Vital Signs: Last Vital Signs Temp 98.6 F 12/27/17 02:08 Pulse 67 12/27/17 03:00 Resp 18 12/27/17 04:18 BP 148/78 12/27/17 03:00 Pulse Ox 100 12/27/17 03:00 - Labs Result Diagrams: 12/27/17 00:15 12/27/17 00:15 Labs: Laboratory Results - last 24 hr 12/27/17 12/27/17 12/27/17 00:15 00:15 00:15 WBC 7.7 RBC 4.68 Hgb 15.1 Hct 42.6 MCV 91.0 MCH 32.3 MCHC 35.4 RDW 12.5 Plt Count 192 MPV 12.2 H Gran % 41.7 L Lymph % (Auto) 45.0 H [place] % (Auto) 11.1 H Eos % (Auto) 1.6 Baso % (Auto) 0.6 Gran # 3.22 Lymph # (Auto) 3.5 H [place] # (Auto) 0.9 H Eos # (Auto) 0.1 Baso # (Auto) 0.05 Sodium 138 Potassium 3.3 L Chloride 99 Carbon Dioxide 28 Anion Gap 15 BUN 10 Creatinine 0.7 Est GFR ( Amer) > 60 Est GFR (Non-Af Amer) > 60 Random Glucose 107 Calcium 9.8 Total Bilirubin 0.9 AST 31 ALT 48 Alkaline Phosphatase 76 Total Protein 8.4 H Albumin 4.6 Globulin 3.8 Albumin/Globulin Ratio 1.2 Lipase 378 H Urine Color Yellow Urine Appearance Clear Urine pH 6.0 Ur Specific [place] 1.020 Urine Protein Negative Urine Glucose (UA) Negative Urine Ketones Negative Urine Blood Small H Urine Nitrate Negative Urine Bilirubin Negative Urine Urobilinogen 0.2 Ur Leukocyte Esterase Negative Urine RBC 2 - 5 Urine WBC 0 - 2 Ur Epithelial Cells 3 - 4 Urine Bacteria Few Attending/Attestation - Attestation I have personally seen and examined this patient.: Yes I have fully participated in the care of the patient.: Yes I have reviewed all pertinent clinical information: Yes Notes (Text): 12/27/17 06:16 Epigastric Abdominal pain possibly 2/[address] A + P was done few days back that showed left renal calculi GI consult IVF NPO Protonix
[2017-12-27] MEDS: Morphine 2 mg/ml ISec IVP PRN ×2 (03:37→07:00)
[2017-12-27 05:56] VITALS: BMI 22.4
[2017-12-27] MEDS ORDERED: Potassium Chloride 20 mEq ER Tab PO STA (07:57)
[2017-12-27] MEDS: Sodium Chloride 0.9% 1,000 ML IV SCH ×3 (08:02→21:21)
[2017-12-27 09:16] LABS: BASO # 0.03 K/mm3 (0.0-2.0); BASO % 0.5 % (0.0-3.0); EOS # 0.1 (0.0-0.7); EOS % 0.8 % (1.5-5.0); GRAN # 2.79 (1.4-6.5); HEMOGLOBIN 13.6 g/dL (12.0-16.0); LYMPH # 2.9 (1.2-3.4); LYMPH % 44.7 % (22.0-35.0); MEAN CELL VOLUME 91.9 fl (80.0-105.0); MEAN CORPUSCULAR HEMOGLOBIN 31.6 pg (25.0-35.0); MEAN CORPUSCULAR HGB CONC 34.3 g/dl (31.0-37.0); MEAN PLATELET VOLUME 12.6 fl (7.0-11.0); MONO # 0.7 (0.1-0.6); RBC 4.31 10^6/uL (3.5-6.1); RED CELL DISTRIBUTION WIDTH 12.5 % (11.5-14.5); WHITE BLOOD COUNT 6.5 10^3/uL (4.5-11.0)
--- NOTE | 2017-12-27 09:21 | RAD ---
Date of service: 12/27/2017 HISTORY: ab pain COMPARISON: 12/21/2017 FINDINGS: LUNGS: No active pulmonary disease. PLEURA: No significant pleural effusion identified, no pneumothorax apparent. CARDIOVASCULAR: No aortic atherosclerotic calcification present. Normal cardiac size. No pulmonary vascular congestion. OSSEOUS STRUCTURES: No significant abnormalities. VISUALIZED UPPER ABDOMEN: Normal. OTHER FINDINGS: None. IMPRESSION: No active disease.
[2017-12-27 09:29] LABS: ALB/GLOB RATIO 1.1 (1.1-1.8); ALBUMIN 3.9 g/dL (3.0-4.8); ALT/SGPT 42 U/L (7-56); AST/SGOT 33 U/L (14-36); BLOOD UREA NITROGEN 5 mg/dL (7-21); CALCIUM 9.4 mg/dL (8.4-10.5); GFR NON-AFRICAN AMERICAN > 60
[2017-12-27] MEDS: Enoxaparin 40 mg Syringe SC SCH (09:59)
--- NOTE | 2017-12-27 10:04 | CARD ---
APPROVED REPORT Date of service: 12/27/2017 EKG Measurement Heart [id number] <Conclusion> Normal sinus rhythm Normal ECG
[2017-12-27] MEDS: Sucralfate 1 gm/10 ml Oral Susp UD PO SCH ×3 (13:26→21:26)
[2017-12-28] MEDS: Sodium Chloride 0.9% 1,000 ML IV SCH ×2 (05:05→16:00)
[2017-12-28] MEDS: Sucralfate 1 gm/10 ml Oral Susp UD PO SCH ×3 (05:29→16:35)
[2017-12-28 07:19] LABS: HEMOGLOBIN 13.9 g/dL (12.0-16.0); MEAN CELL VOLUME 91.3 fl (80.0-105.0); MEAN PLATELET VOLUME 11.9 fl (7.0-11.0); RBC 4.48 10^6/uL (3.5-6.1); RED CELL DISTRIBUTION WIDTH 12.4 % (11.5-14.5); WHITE BLOOD COUNT 7.4 10^3/uL (4.5-11.0)
[2017-12-28 07:39] LABS: ALB/GLOB RATIO 1.2 (1.1-1.8); ALBUMIN 4.2 g/dL (3.0-4.8); ALT/SGPT 32 U/L (7-56); AST/SGOT 25 U/L (14-36); BLOOD UREA NITROGEN 3 mg/dL (7-21); CALCIUM 9.2 mg/dL (8.4-10.5); GFR NON-AFRICAN AMERICAN > 60
--- NOTE | 2017-12-28 08:54 | US ---
Date of service: 12/28/2017 HISTORY: abdominal pain, nausea/vomiting COMPARISON: Abdomen pelvis CT without contrast 12/21/2017. TECHNIQUE: Sonographic evaluation of the right upper quadrant of the abdomen. FINDINGS: LIVER: Measures 15.3 cm in length. Normal echogenicity of the liver parenchyma. No mass. No intrahepatic bile duct dilatation. Normal directional blood flow at the main portal vein. GALLBLADDER: Unremarkable. No gallstones. COMMON BILE DUCT: Measures 3.6 mm. No stones. No dilatation. PANCREAS: The tail of the pancreas is obscured by overlying bowel gas with remainder unremarkable. RIGHT KIDNEY: Measures 11.0 cm in length. Right renal parenchyma is remarkable only for a small septated cyst at the upper pole measure 1.0 x 1.1 x 1.0 cm. The remainder of the renal parenchyma is unremarkable. No definite urolithiasis, mass or hydronephrosis. AORTA: No aneurysmal dilatation. IVC: Unremarkable. OTHER FINDINGS: None . IMPRESSION: 1. Unremarkable liver, gallbladder and biliary tree as imaged. 2. 1.1 cm minimally complex cyst upper pole right kidney. The remainder of the right kidney appears unremarkable. 3. Tail the pancreas is obscured by overlying bowel gas with remainder unremarkable.
[2017-12-28] MEDS: Enoxaparin 40 mg Syringe SC SCH (09:42)
--- NOTE | 2017-12-28 11:42 | CON ---
DATE: 12/28/2017 HISTORY OF PRESENT ILLNESS: I saw Mrs. Smith this morning. She is a 52-year-old black female previously admitted for complaints of nausea, vomiting, abdominal pain and diarrhea after intake of high dose of Flexeril and baclofen used to treat back pain. Apparently, she stopped her analgesic and consulted a friend for medication use to control her symptoms. The patient discharged herself during her last admission. Subsequently was readmitted with same complaints that is abdominal pain, nausea, vomiting and diarrhea. At the bedside this morning, the patient has made a little progress. She has dry heaving; however, during the evening, did fairly well after intake of clear full liquids. She still has significant pain in the epigastric area. Note that CT obtained during prior to admission was noncontributory. Chest x-ray obtained during this admission revealed no active disease. PHYSICAL EXAMINATION: VITAL SIGNS: I reviewed this patient's vital signs. HEENT: Noncontributory. HEART: Regular rhythm. LUNGS: Clear to auscultation. ABDOMEN: Soft and very tender in the epigastric area. Remainder is noncontributory. LABORATORY DATA: I reviewed the laboratory data, which indicated normal white count, H and H 13 and 39, and platelets 185. Chemistry is noncontributory. ASSESSMENT: This is a 52-year-old female readmitted with complaints of nausea, vomiting and abdominal pain also with diarrhea. Symptoms suggestive of a gastroenteritis or possibly narcotic withdrawal; however, she does not have diffuse muscle aches and headaches. Tenderness in the epigastric area is suggestive of an ulceration either in the proximal stomach or distal esophagus. Note that as indicated in my prior consult, the patient has not followed antireflux precautions. The extent of NSAID intake on the outside is also questionable. Review of orders indicate the patient is on pantoprazole twice daily, IV fluids as well as sucralfate. I advised her few significant dietary discretion. Note that, the patient is on schedule for for an upper endoscopy. Note that due to scheduling issues, EGD cannot be accomplished today or tomorrow. I reviewed the issues regarding the risks, benefits and alternatives of the upper endoscopy, which is going to be performed on . The patient understood the discussion and agreed to have the procedure done. In the interim, again she will practice antireflux issues plus dietary discretion. Continue on current medication regimen. The only issue I would suggest is possibly an ultrasound today. Yon Maher DO, PhD [facility]
[2017-12-28] MEDS: Menthol/Methyl Salicylate Ointment(1 oz) TOP SCH ×2 (13:35→17:51)
[2017-12-28] MEDS ORDERED: Alum-Mag Hydrox-Simethicone Susp (30 mL) PO PRN (13:45)
--- NOTE | 2017-12-28 16:22 | CP.PCM.PN ---
<Janee Rodriguez - Last Filed: 12/28/17 16:16> Subjective - Date & Time of Evaluation Date of Evaluation: 12/28/17 Time of Evaluation: 16:16 - Subjective Subjective: Resident Janee Rodriguez DO PGY-1 Hospitalist Progress Note for Dr. Kat: Pt was seen and examined this morning at bedside. She states that she had an episode of nausea and vomiting early this AM. She states that she also had an episode of diarrhea. The pt states that the GI doctor states its related to the beef broth and therefore she is staying away from the broth. She states that she is having tenderness in her LUQ but is not related to gas. She had no other acute overnight events and has no other acute complaints at this time. Objective - Vital Signs/Intake and Output Vital Signs (last 24 hours): Temp Pulse Resp BP Pulse Ox 98.4 F 79 18 143/95 H 100 12/28/17 14:55 12/28/17 14:55 12/28/17 14:55 12/28/17 14:55 12/28/17 14:55 - Medications Medications: Current Medications Acetaminophen (Tylenol 325mg Tab) 650 mg PO Q6H PRN PRN Reason: Pain, moderate (4-7) Al Hydrox/Mg Hydrox/Simethicone (Maalox Plus 30 Ml) 30 ml PO BID PRN PRN Reason: Indigestion / Heartburn Camphor/Menthol (Bengay) 0 gm TOP BID [facility] Last Admin: 12/28/17 13:35 Dose: 1 appl Enoxaparin Sodium (Lovenox) 40 mg SC DAILY [facility]; Protocol Last Admin: 12/28/17 09:42 Dose: Not Given Sodium Chloride (Sodium Chloride 0.9%) 1,000 mls @ 125 mls/hr IV .Q8H [facility] Last Admin: 12/28/17 05:05 Dose: Not Given Ondansetron HCl (Zofran Inj) 4 mg IVP Q6H PRN PRN Reason: Nausea/Vomiting Last Admin: 12/28/17 05:26 Dose: 4 mg Pantoprazole Sodium (Protonix Inj) 40 mg IVP BID [facility] Last Admin: 12/28/17 09:37 Dose: 40 mg Sucralfate (Carafate Oral Susp) 1 gm PO 0630,1130,1630,2200 [facility] Last Admin: 12/28/17 13:35 Dose: 1 gm Zolpidem Tartrate (Ambien) 10 mg PO HS PRN; Protocol PRN Reason: Insomnia - Labs Labs: 12/28/17 07:00 12/28/17 07:00 - Constitutional Appears: Well, Non-toxic, No Acute Distress - Head Exam Head Exam: ATRAUMATIC, NORMAL INSPECTION, NORMOCEPHALIC - Eye Exam Eye Exam: EOMI, Normal appearance, PERRL - Respiratory Exam Respiratory Exam: Clear to Ausculation Bilateral, NORMAL BREATHING PATTERN. absent: Accessory Muscle Use, Decreased Breath Sounds, Rales, Rhonchi, Wheezes, Respiratory Distress, Stridor - Cardiovascular Exam Cardiovascular Exam: RRR, +S1, +S2. absent: Gallop, Rubs - GI/Abdominal Exam GI & Abdominal Exam: Soft, Tenderness (Present diffusely in upper abdomen, but worse in LUQ with palpation. ), Normal Bowel Sounds. absent: Guarding, Rigid - Extremities Exam Extremities Exam: Full ROM, Normal Capillary Refill, Normal Inspection. absent: Calf Tenderness - Back Exam Back Exam: NORMAL INSPECTION. absent: CVA tenderness (L), CVA tenderness (R) - Neurological Exam Neurological Exam: Alert, Awake, Oriented x3 - Psychiatric Exam Psychiatric exam: Normal Affect, Normal Mood - Skin Skin Exam: Dry, Intact, Normal Color, Warm Assessment and Plan - Assessment and Plan (Free Text) Assessment: Pt is a 52 yo female with a PMHx of chronic back pain who presented to the ED a fter leaving AMA last night from [facility]. Patient was admitted for overdose of flexeril and baclofen however left the hospital AMA. Pt states she experienced nausea and vomiting overnight with a one time bout of diarrhea overnight. GI will scope pt on . Plan: 1. Intractable Nausea/ Vomiting/ Diarrhea - Amylase wnl, Lipase initially elevated at 378 but then wnl on next check - TSH- wnl - IVF NS125 - pantoprazole - Sucralfate - NPO - GI consult, Dr Maher - Will advance diet as tolerated, per GI recs - NPO tomorrow at midnight for scope on - Zofran PRN for nausea 2. Hypokalemia: Resolved - 3.7 today, will continue to monitor - replete PRN 3. Ppx - lovenox Pt seen and discussed with Dr. North Rodriguez DO Internal Medicine Resident PGY-1 <Phil Kat - Last Filed: 12/28/17 17:40> Objective - Vital Signs/Intake and Output Vital Signs (last 24 hours): Temp Pulse Resp BP Pulse Ox 98.4 F 79 18 143/95 H 100 12/28/17 14:55 12/28/17 14:55 12/28/17 14:55 12/28/17 14:55 12/28/17 14:55 - Medications Medications: Current Medications Acetaminophen (Tylenol 325mg Tab) 650 mg PO Q6H PRN PRN Reason: Pain, moderate (4-7) Al Hydrox/Mg Hydrox/Simethicone (Maalox Plus 30 Ml) 30 ml PO BID PRN PRN Reason: Indigestion / Heartburn Camphor/Menthol (Bengay) 0 gm TOP BID [facility] Last Admin: 12/28/17 13:35 Dose: 1 appl Enoxaparin Sodium (Lovenox) 40 mg SC DAILY [facility]; Protocol Last Admin: 12/28/17 09:42 Dose: Not Given Sodium Chloride (Sodium Chloride 0.9%) 1,000 mls @ 125 mls/hr IV .Q8H [facility] Last Admin: 12/28/17 16:00 Dose: 125 mls/hr Ondansetron HCl (Zofran Inj) 4 mg IVP Q6H PRN PRN Reason: Nausea/Vomiting Last Admin: 12/28/17 05:26 Dose: 4 mg Pantoprazole Sodium (Protonix Inj) 40 mg IVP BID [facility] Last Admin: 12/28/17 09:37 Dose: 40 mg Sucralfate (Carafate Oral Susp) 1 gm PO 0630,1130,1630,2200 [facility] Last Admin: 12/28/17 16:35 Dose: Not Given Zolpidem Tartrate (Ambien) 10 mg PO HS PRN; Protocol PRN Reason: Insomnia - Labs Labs: 12/28/17 07:00 12/28/17 07:00 Attending/Attestation - Attestation I have personally seen and examined this patient.: Yes I have fully participated in the care of the patient.: Yes I have reviewed all pertinent clinical information, including history, physical exam and plan: Yes Notes (Text): Persistent N/V with abdominal discomfort. c/w zofran c/w IVF Pt is scheduled for EGD on 12/28/17 17:33
[2017-12-28 16:55] LABS: OPIATES, UR NEGATIVE (NEGATIVE)
[2017-12-28 17:02] LABS: BARBITURATES, UR NEGATIVE (NEGATIVE); BENZODIAZEPINES, UR NEGATIVE (NEGATIVE); PHENCYCLIDINE, UR NEGATIVE (NEGATIVE)
[2017-12-29] MEDS: Sucralfate 1 gm/10 ml Oral Susp UD PO SCH ×4 (07:06→21:44)
--- NOTE | 2017-12-29 07:27 | PN ---
DATE: 12/29/2017 SUBJECTIVE: I saw Ms. Smith this morning. She is a 52-year-old black female with complaints of nausea and vomiting. Note that the patient was readmitted after going home after a brief episode in the hospital. The patient indicated nausea after intake of broth yesterday. Also had abdominal pain localized to the abdominal wall, relieved with "Bengay ointment." The patient has had no diarrhea. Fever, chills, hematemesis, and rectal bleeding denied. PHYSICAL EXAMINATION: VITAL SIGNS: I reviewed this patient's vital signs. HEENT: Noncontributory. LUNGS: Clear to auscultation. HEART: Regular rate and rhythm. ABDOMEN: Soft, nontender except in the epigastric area and left upper quadrant. The abdomen is not distended. LABORATORY DATA: I reviewed this patient's laboratory data, which indicates H and H stable. Chemistries noncontributory. Note that the lipase is decreased from 378 down to 136. Amylase is within normal limits. I reviewed the patient's ultrasound. Hepatobiliary within normal limits. However, she does have a small septated cyst in the upper pole of the right kidney. This is measured by radiologist's standard 0.1 cm. Note that the tail of pancreas is obscured by overlying bowel gas. OVERALL ASSESSMENT: This is a 52-year-old black female with nausea, vomiting, and abdominal pain. Those symptoms seemed to be resolving with dietary discretion. Note that the symptoms are suggestive of several things, one is a gastroenteritis, secondly perhaps the choice of the patient to come off of her analgesic, cold turkey, may have caused withdrawal symptoms. Note that she still has residual epigastric pain as well as left upper quadrant discomfort. The endoscopy to check the presence of either gastric or esophageal ulceration is planned for tomorrow morning at 10:00. The patient was advised to practice significant dietary discretion. She is aware of the food types, which can cause symptoms. Not sure if the patient could handle small portion of very soft diet. Review of orders indicates medication sufficient, which at this point in time includes pantoprazole as well as Carafate suspension. A renal cyst was reviewed and she was advised the patient to discuss with the house staff any further workup warranted for this lesion. Yon Maher DO, PhD [facility] # [id number] [facility]
--- NOTE | 2017-12-29 09:12 | CP.PCM.PN ---
Subjective - Date & Time of Evaluation Date of Evaluation: 12/29/17 Time of Evaluation: 09:09 - Subjective Subjective: Resident Janee Rodriguez DO PGY-1 Hospitalist Progress Note for Dr. Eubanks: Pt was seen and examined this morning at bedside. She states that she had 2 episodes of nausea and vomiting yesterday, that were non-bloody. She states that she hasnt had anymore episodes of diarrhea. The pt states that the GI doctor states its related to the beef broth and therefore she is staying away from the broth. She states that the RUQ pain that she was experiencing yesterday is relieved by bengay and a heating pad. She had no other acute overnight events and has no other acute complaints at this time. Objective - Vital Signs/Intake and Output Vital Signs (last 24 hours): Temp Pulse Resp BP Pulse Ox 98.3 F 81 18 120/71 100 12/29/17 06:00 12/29/17 06:00 12/29/17 06:00 12/29/17 06:00 12/29/17 06:00 Intake and Output: 12/29/17 12/29/17 06:59 18:59 Intake Total 240 Balance 240 - Medications Medications: Current Medications Acetaminophen (Tylenol 325mg Tab) 650 mg PO Q6H PRN PRN Reason: Pain, moderate (4-7) Al Hydrox/Mg Hydrox/Simethicone (Maalox Plus 30 Ml) 30 ml PO BID PRN PRN Reason: Indigestion / Heartburn Camphor/Menthol (Bengay) 0 gm TOP BID [facility] Last Admin: 12/28/17 17:51 Dose: 1 appl Enoxaparin Sodium (Lovenox) 40 mg SC DAILY [facility]; Protocol Last Admin: 12/28/17 09:42 Dose: Not Given Sodium Chloride (Sodium Chloride 0.9%) 1,000 mls @ 125 mls/hr IV .Q8H [facility] Last Admin: 12/28/17 16:00 Dose: 125 mls/hr Ondansetron HCl (Zofran Inj) 4 mg IVP Q6H PRN PRN Reason: Nausea/Vomiting Last Admin: 12/29/17 08:34 Dose: 4 mg Pantoprazole Sodium (Protonix Inj) 40 mg IVP BID [facility] Last Admin: 12/28/17 09:37 Dose: 40 mg Sucralfate (Carafate Oral Susp) 1 gm PO 0630,1130,1630,2200 [facility] Last Admin: 12/29/17 07:06 Dose: 1 gm Zolpidem Tartrate (Ambien) 10 mg PO HS PRN; Protocol PRN Reason: Insomnia Last Admin: 12/28/17 22:56 Dose: 10 mg - Labs Labs: 12/28/17 07:00 12/28/17 07:00 - Constitutional Appears: Well, Non-toxic, No Acute Distress - Head Exam Head Exam: ATRAUMATIC, NORMAL INSPECTION, NORMOCEPHALIC - Eye Exam Eye Exam: EOMI, Normal appearance, PERRL - Respiratory Exam Respiratory Exam: Clear to Ausculation Bilateral, NORMAL BREATHING PATTERN. absent: Accessory Muscle Use, Decreased Breath Sounds, Rales, Rhonchi, Wheezes, Respiratory Distress, Stridor - Cardiovascular Exam Cardiovascular Exam: RRR, +S1, +S2. absent: Gallop, Rubs - GI/Abdominal Exam GI & Abdominal Exam: Soft, Tenderness (Present in the epigastric region upon palpation.), Normal Bowel Sounds. absent: Firm, Rigid - Extremities Exam Extremities Exam: Full ROM, Normal Capillary Refill, Normal Inspection. absent: Pedal Edema - Back Exam Back Exam: NORMAL INSPECTION. absent: CVA tenderness (L), CVA tenderness (R) - Neurological Exam Neurological Exam: Alert, Awake, Oriented x3 - Psychiatric Exam Psychiatric exam: Normal Affect, Normal Mood - Skin Skin Exam: Dry, Intact, Normal Color, Warm Assessment and Plan - Assessment and Plan (Free Text) Assessment: Pt is a 52 yo female with a PMHx of chronic back pain who presented to the ED after leaving AMA last night from [facility] [place]. Patient was admitted for overdose of flexeril and baclofen however left the hospital AMA. Pt states she experienced nausea and vomiting overnight with a one time bout of diarrhea overnight. Pt NPO @ midnight, GI will scope pt tomorrow. Plan: 1. Intractable Nausea/ Vomiting/ Diarrhea - Amylase wnl, Lipase initially elevated at 378 but then wnl on next check - TSH- wnl - IVF NS-125 - pantoprazole - Sucralfate - NPO - GI consult, Dr Maher - Will advance diet as tolerated, per GI recs - NPO today at midnight for EGD tomorrow - Zofran PRN for nausea 2. Hypokalemia: Resolved - 3.7 today, will continue to monitor - replete PRN 3. Ppx - lovenox Pt seen and discussed with Dr. Raimnudo Rodriguez DO Internal Medicine Resident PGY-1
[2017-12-29] MEDS: Menthol/Methyl Salicylate Ointment(1 oz) TOP SCH ×2 (09:36→17:14)
[2017-12-29] MEDS: Enoxaparin 40 mg Syringe SC SCH ×2 (09:38→12:20)
[2017-12-29] MEDS: Sodium Chloride 0.9% 1,000 ML IV SCH (12:19)
[2017-12-30] MEDS: Sodium Chloride 0.9% 1,000 ML IV SCH ×3 (05:19→22:09)
[2017-12-30 07:20] LABS: HEMOGLOBIN 13.2 g/dL (12.0-16.0); MEAN CELL VOLUME 90.8 fl (80.0-105.0); MEAN CORPUSCULAR HEMOGLOBIN 31.1 pg (25.0-35.0); MEAN CORPUSCULAR HGB CONC 34.3 g/dl (31.0-37.0); MEAN PLATELET VOLUME 10.8 fl (7.0-11.0); RBC 4.24 10^6/uL (3.5-6.1); RED CELL DISTRIBUTION WIDTH 12.4 % (11.5-14.5); WHITE BLOOD COUNT 4.9 10^3/uL (4.5-11.0)
--- NOTE | 2017-12-30 08:26 | PN ---
DATE: 12/30/2017 SUBJECTIVE: I saw Ms. Smith this morning. She is a 52-year-old black female with complaints of nausea, vomiting, abdominal pain and diarrhea. The patient has been unsuccessful advancing her diet due to recurrent episodes of severe epigastric pain associated with nausea and vomiting. This has been attempted on multiple occasions. She is scheduled for an upper endoscopy later on this morning. The patient has been on Carafate suspension, which she has been taking before meals as well as PPI. This does not alleviate her symptoms. The patient has denied any hematemesis or rectal bleeding, severe headaches or muscle aches, etc. PHYSICAL EXAMINATION: VITAL SIGNS: I reviewed this patient's vital signs. HEENT: Noncontributory except for dry mouth. HEART: Regular rhythm. LUNGS: Clear to auscultation. ABDOMEN: Soft. No tenderness elicited anywhere except for moderate severity in the area of the epigastric area and left upper quadrant. The abdomen is not distended. Has normal bowel sounds. LABORATORY DATA: I reviewed this patient's laboratory data, which was stated yesterday. Stool for C. difficile toxins and antigen are both negative. ASSESSMENT AND PLAN: This is a 52-year-old female with recurrent nausea and vomiting and epigastric pain. The patient is scheduled for a procedure later on this morning around 10 o'clock. She is advised of risks, benefits and alternatives of the endoscopic procedure. She agreed to have the procedure performed and would sign the consent when she arrives to [facility] prior to the endoscopy. Further input after the procedure is performed. Yon Maher DO, PhD [facility]
[2017-12-30 08:44] LABS: ALB/GLOB RATIO 1.2 (1.1-1.8); ALT/SGPT 29 U/L (7-56); AST/SGOT 20 U/L (14-36); BLOOD UREA NITROGEN 6 mg/dL (7-21); CALCIUM 9.2 mg/dL (8.4-10.5); GFR NON-AFRICAN AMERICAN > 60
[2017-12-30] MEDS ORDERED: Propofol 10 mg/ml Inj (20 ML) ONE (09:54)
--- NOTE | 2017-12-30 10:29 | CP.PCM.PN ---
<Janee Rodriguez - Last Filed: 12/30/17 16:14> Subjective - Date & Time of Evaluation Date of Evaluation: 12/30/17 Time of Evaluation: 10:25 - Subjective Subjective: Resident Janee Rodriguez DO PGY-1 Hospitalist Progress Note for Dr. Sylvia Hernandez: Pt was seen and examined this morning at bedside. She states that she has been NPO since midnight last night. She had no acute overnight events. She will be going down for EGD today. She states that she didnt eat anything all day yesterday and felt much better than she has the past few days. She is currently denying fevers, chills, SOB, cough, chest pain, palpitations, n/v, c/d, abd pain, dysuria or hematuria. Objective - Vital Signs/Intake and Output Vital Signs (last 24 hours): Temp Pulse Resp BP Pulse Ox 98.5 F 85 15 119/85 100 12/30/17 08:56 12/30/17 08:56 12/30/17 08:56 12/30/17 08:56 12/30/17 09:51 Intake and Output: 12/30/17 12/30/17 06:59 18:59 Intake Total 0 Balance 0 - Medications Medications: Current Medications Acetaminophen (Tylenol 325mg Tab) 650 mg PO Q6H PRN PRN Reason: Pain, moderate (4-7) Al Hydrox/Mg Hydrox/Simethicone (Maalox Plus 30 Ml) 30 ml PO BID PRN PRN Reason: Indigestion / Heartburn Camphor/Menthol (Bengay) 0 gm TOP BID [facility] Last Admin: 12/29/17 17:14 Dose: 1 appl Enoxaparin Sodium (Lovenox) 40 mg SC DAILY [facility]; Protocol Last Admin: 12/29/17 12:20 Dose: 40 mg Sodium Chloride (Sodium Chloride 0.9%) 1,000 mls @ 100 mls/hr IV .Q10H [facility] Metoclopramide HCl (Reglan) 5 mg IVP AC PRN PRN Reason: Nausea/Vomiting Nicotine (Nicoderm Cq) 1 patch TD DAILY [facility] Last Admin: 12/29/17 12:18 Dose: 1 patch Ondansetron HCl (Zofran Inj) 8 mg IVP Q6H PRN PRN Reason: Nausea/Vomiting Pantoprazole Sodium (Protonix Inj) 40 mg IVP BID [facility] Last Admin: 12/29/17 17:05 Dose: 40 mg Sucralfate (Carafate Oral Susp) 1 gm PO 0630,1130,1630,2200 [facility] Last Admin: 12/29/17 21:44 Dose: 1 gm Zolpidem Tartrate (Ambien) 5 mg PO DAILY PRN; Protocol PRN Reason: Insomnia Last Admin: 12/29/17 21:44 Dose: 5 mg Zolpidem Tartrate (Ambien) 5 mg PO HS PRN; Protocol PRN Reason: Insomnia Last Admin: 12/30/17 01:50 Dose: 5 mg - Labs Labs: 12/30/17 07:00 12/30/17 07:00 - Constitutional Appears: Well, Non-toxic, No Acute Distress - Head Exam Head Exam: ATRAUMATIC, NORMAL INSPECTION, NORMOCEPHALIC - Eye Exam Eye Exam: EOMI, Normal appearance, PERRL - Respiratory Exam Respiratory Exam: Clear to Ausculation Bilateral, NORMAL BREATHING PATTERN. absent: Accessory Muscle Use, Decreased Breath Sounds, Rales, Rhonchi, Wheezes, Respiratory Distress, Stridor - Cardiovascular Exam Cardiovascular Exam: RRR, +S1, +S2. absent: Gallop, Rubs - GI/Abdominal Exam GI & Abdominal Exam: Soft, Tenderness (Present in LUQ), Normal Bowel Sounds. absent: Firm, Guarding, Rigid - Extremities Exam Extremities Exam: Full ROM, Normal Capillary Refill, Normal Inspection. absent: Pedal Edema - Back Exam Back Exam: NORMAL INSPECTION. absent: CVA tenderness (L), CVA tenderness (R) - Neurological Exam Neurological Exam: Alert, Awake, Oriented x3 - Psychiatric Exam Psychiatric exam: Normal Affect, Normal Mood - Skin Skin Exam: Dry, Intact, Normal Color, Warm Assessment and Plan - Assessment and Plan (Free Text) Assessment: Pt is a 52 yo female with a PMHx of chronic back pain who presented to the ED after leaving AMA last night from [facility] [place]. Patient was admitted for overdose of flexeril and baclofen however left the hospital AMA. Pt states she experienced nausea and vomiting overnight with a one time bout of diarrhea overnight. Pt NPO @ midnight, GI will scope pt today. Plan: 1. Intractable Nausea/ Vomiting/ Diarrhea - Amylase wnl, Lipase initially elevated at 378 but then wnl on next check - TSH- wnl - IVF NS-125 - pantoprazole - Sucralfate - NPO - GI consult, Dr Maher - NPO since midnight for EGD - Zofran PRN for nausea 2. Duodenal Ulcers - Noted on EGD: - EGD - Showed several small doudenal superficial ulcers, gastritis and duodenitis - Per GI advance diet as tolerated - Anti-reflux precautions - On protonix and carafate 3. Hypokalemia: Resolved - 3.7 today, will continue to monitor - replete PRN 4. Ppx - lovenox - Protonix - Carafate Further recs per Dr. Sylvia Rodriguez DO Internal Medicine Resident PGY-1 <Maki Hernandez R - Last Filed: 12/31/17 00:13> Objective - Vital Signs/Intake and Output Vital Signs (last 24 hours): Temp Pulse Resp BP Pulse Ox 99.1 F 82 16 107/70 100 12/30/17 22:53 12/30/17 22:53 12/30/17 22:53 12/30/17 22:53 12/30/17 22:53 Intake and Output: 12/30/17 12/31/17 18:59 06:59 Intake Total 480 Balance 480 - Medications Medications: Current Medications Acetaminophen (Tylenol 325mg Tab) 650 mg PO Q6H PRN PRN Reason: Pain, moderate (4-7) Al Hydrox/Mg Hydrox/Simethicone (Maalox Plus 30 Ml) 30 ml PO BID PRN PRN Reason: Indigestion / Heartburn Camphor/Menthol (Bengay) 0 gm TOP BID [facility] Last Admin: 12/30/17 17:18 Dose: 1 appl Enoxaparin Sodium (Lovenox) 40 mg SC DAILY [facility]; Protocol Last Admin: 12/29/17 12:20 Dose: 40 mg Sodium Chloride (Sodium Chloride 0.9%) 1,000 mls @ 100 mls/hr IV .Q10H [facility] Last Admin: 12/30/17 22:09 Dose: 100 mls/hr Nicotine (Nicoderm Cq) 1 patch TD DAILY [facility] Last Admin: 12/30/17 13:23 Dose: Not Given Ondansetron HCl (Zofran Inj) 8 mg IVP Q6H PRN PRN Reason: Nausea/Vomiting Last Admin: 12/30/17 13:17 Dose: 8 mg Pantoprazole Sodium (Protonix Inj) 40 mg IVP BID [facility] Last Admin: 12/30/17 17:18 Dose: 40 mg Sucralfate (Carafate Oral Susp) 1 gm PO 0630,1130,1630,2200 [facility] Last Admin: 12/30/17 22:00 Dose: 1 gm Zolpidem Tartrate (Ambien) 5 mg PO DAILY PRN; Protocol PRN Reason: Insomnia Last Admin: 12/29/17 21:44 Dose: 5 mg Zolpidem Tartrate (Ambien) 5 mg PO HS PRN; Protocol PRN Reason: Insomnia Last Admin: 12/30/17 22:00 Dose: 5 mg - Labs Labs: 12/30/17 07:00 12/30/17 07:00 Attending/Attestation - Attestation I have personally seen and examined this patient.: Yes I have fully participated in the care of the patient.: Yes I have reviewed all pertinent clinical information, including history, physical exam and plan: Yes Notes (Text): Patient seen and examined by me with resident at 11:30 AM on 12/30/17. Case including HPI, physical exam, and assessment and plan discussed with resident. Agree with above with following additions/corrections. Patient is a 52-year-old female past medical history significant for chronic back pain that presented to the emergency room with epigastric abdominal pain, nausea, vomiting, and diarrhea. Patient states she is still feeling ok. States she is having abdominal pain after having EGD. Patient states she is feeling hungry and would like to try liquids. Patient is denying diarrhea today. No chest pain or palpitations. No shortness of breath. No headaches or dizziness. No dysuria.No fevers or chills. Physical exam: General: Awake and alert sitting upin bed in no acute distress HEENT: Normocephalic, atraumatic. Extraocular muscles intact, pupils equal and reactive, no scleral icterus. Oropharynx is pink and moist. Neck is supple. Cardiovascular: Regular rhythm. Normal S1 and S2. No murmurs, rubs, or gallops appreciated Pulmonary: Normal respiratory effort. No rhonchi, rales, or wheezing appreciated. Gastrointestinal: Soft. Nondistended. Positive epigastric tenderness. Positive bowel sounds all 4 quadrants. No guarding. Musculoskeletal: Moves all extremities. No calf tenderness. No CVA tenderness. No edema appreciated. Central nervous system: AAO x3, CN 2-12 grossly intact. Dermatologic: Skin warm and dry. Assessment and plan:Patient is a 52-year-old female past medical history signif icant for chronic back pain that presented to the emergency room with epigastric abdominal pain, nausea, vomiting, and diarrhea. 1. Epigastric abdominal pain. Intractable nausea and vomiting. GI following, recommendations appreciated. Patient s/p EGD today. Per GI, EGD showed laryngo- esophageal reflux, no gross lesions in esophagus, gastritis/duodenitis, multiple duodenal ulcers, several small erosions. Placed on clear liquid diet. Advance diet as tolerated. Continue Protonix. Continue Carafate. She will need to follow up outpatient for biopsy results. Patient counseled at length on anti-reflux precautions. 2. Diarrhea. No diarrhea today. Stool for ova and parasites negative. Stool for C. difficile negative. 3. Insomnia. Continue Ambien as needed. 4. Tobacco abuse. Continue nicotine patch. Patient counseled on cessation. 5. GI prophylaxis. Protonix. 6. DVT prophylaxis. Lovenox Case was discussed in detail with the patient regarding current diagnosis and treatment plan. All questions answered.
[2017-12-30] MEDS: Sucralfate 1 gm/10 ml Oral Susp UD PO SCH ×4 (13:17→22:00)
[2017-12-30] MEDS: Menthol/Methyl Salicylate Ointment(1 oz) TOP SCH ×2 (13:20→17:18)
[2017-12-31 08:33] VITALS: RESP 20
[2017-12-31] MEDS: Sucralfate 1 gm/10 ml Oral Susp UD PO SCH ×3 (08:53→17:51)
[2017-12-31] MEDS: Menthol/Methyl Salicylate Ointment(1 oz) TOP SCH ×2 (09:37→18:19)
[2017-12-31] MEDS: Sodium Chloride 0.9% 1,000 ML IV SCH (09:38)
--- NOTE | 2017-12-31 10:47 | PN ---
DATE: 12/31/2017 SUBJECTIVE: I examined Mrs. Smith this morning. She is a 52-year-old black female with complaints of nausea, vomiting, abdominal pain and diarrhea. The patient's symptoms have resolved somewhat since the day of admission. She had an endoscopic procedure yesterday seeking for mild gastritis with multiple ulcerations, erosions in the area of the duodenal bulb. She had evidence of laryngoesophageal reflux as well. Biopsy results are pending. At the bedside this morning, the patient indicates minimal epigastric pain through her abdomen as well as periumbilical area, nontender. After the endoscopic procedure yesterday she had multiple episodes of nausea, vomiting with some diarrhea. These symptoms have dissipated. PHYSICAL EXAMINATION VITAL SIGNS: I reviewed this patient's vital signs. HEENT: Noncontributory. LUNGS: Clear to auscultation. HEART: Regular rhythm. ABDOMEN: Soft. Mildly tender in the epigastric area. LABORATORY DATA: I reviewed the laboratory data from yesterday. ASSESSMENT AND PLAN: This is a 52-year-old black female with complaints of nausea, vomiting, abdominal pain; found to have ulcerations in the area of the duodenal bulb. The patient is currently on the current medications which include pantoprazole twice daily which should be before meals as well as Carafate suspension. Note that the Carafate suspension should be taken 30 minutes after meals and at bedtime. Food/liquid ingestion should be avoided for at least an hour after each dose. I advised the patient to try and advance her diet today if she is able to handle breakfast with no problems. If she is discharged, medications for her would include pantoprazole twice daily at least for four to six weeks, Carafate could be added after meals and at bedtime as an adjunctive therapy. Note that I advised the patient how to take her pantoprazole as well as sucralfate on an outpatient basis. If The patient continues to have abdominal pain and recurrent nausea and vomiting, an updated CT with oral and IV contrast could be undertaken and/or possibly an upper GI series to see if there is small bowel pathology contributing to symptoms. If the patient handles her diet advance well with no issues at all, the studies just indicated could be deferred. Will sign off. Yon Maher DO, PhD SHERWIN
--- NOTE | 2017-12-31 17:16 | CP.PCM.PN ---
<Janee Rodriguez - Last Filed: 12/31/17 21:39> Subjective - Date & Time of Evaluation Date of Evaluation: 12/31/17 Time of Evaluation: 17:15 - Subjective Subjective: Resident Janee Rodriguez DO PGY-1 Hospitalist Progress Note for Dr. Garcia: Pt was seen and examined this morning at bedside. Pt states that overnight she had an episode of vomiting and diarrhea after EGD. Today she states that she is feeling a lot better and will attempt to tolerate a diet. She is currently denying fevers, chills, SOB, cough, chest pain, palpitations, n/v, c/d, abd pain, dysuria or hematuria. No other acute complaints at this time. Objective - Vital Signs/Intake and Output Vital Signs (last 24 hours): Temp Pulse Resp BP Pulse Ox 98.6 F 75 20 132/83 99 12/31/17 14:00 12/31/17 14:00 12/31/17 14:00 12/31/17 14:00 12/31/17 14:00 Intake and Output: 12/31/17 12/31/17 06:59 18:59 Intake Total 1680 Balance 1680 - Medications Medications: Current Medications Acetaminophen (Tylenol 325mg Tab) 650 mg PO Q6H PRN PRN Reason: Pain, moderate (4-7) Al Hydrox/Mg Hydrox/Simethicone (Maalox Plus 30 Ml) 30 ml PO BID PRN PRN Reason: Indigestion / Heartburn Camphor/Menthol (Bengay) 0 gm TOP BID HELENA Last Admin: 12/31/17 09:37 Dose: Not Given Enoxaparin Sodium (Lovenox) 40 mg SC DAILY HELENA; Protocol Last Admin: 12/29/17 12:20 Dose: 40 mg Sodium Chloride (Sodium Chloride 0.9%) 1,000 mls @ 100 mls/hr IV .Q10H HELENA Last Admin: 12/31/17 09:38 Dose: 100 mls/hr Lorazepam (Ativan) 0.5 mg IVP Q8H PRN; Protocol PRN Reason: Anxiety, Nausea Last Admin: 12/31/17 12:14 Dose: 0.5 mg Nicotine (Nicoderm Cq) 1 patch TD DAILY HELENA Last Admin: 12/31/17 09:35 Dose: Not Given Ondansetron HCl (Zofran Inj) 8 mg IVP Q6H PRN PRN Reason: Nausea/Vomiting Last Admin: 12/31/17 09:35 Dose: 8 mg Pantoprazole Sodium (Protonix Inj) 40 mg IVP 0600,1800 [facility] Last Admin: 12/31/17 16:15 Dose: 40 mg Sucralfate (Carafate Oral Susp) 1 gm PO 0630,1130,1630,2200 HELENA Last Admin: 12/31/17 14:30 Dose: 1 gm Zolpidem Tartrate (Ambien) 5 mg PO DAILY PRN; Protocol PRN Reason: Insomnia Last Admin: 12/31/17 02:13 Dose: 5 mg Zolpidem Tartrate (Ambien) 5 mg PO HS PRN; Protocol PRN Reason: Insomnia Last Admin: 12/30/17 22:00 Dose: 5 mg - Labs Labs: 12/30/17 07:00 12/30/17 07:00 - Constitutional Appears: Well, Non-toxic, No Acute Distress - Head Exam Head Exam: ATRAUMATIC, NORMAL INSPECTION, NORMOCEPHALIC - Eye Exam Eye Exam: EOMI, Normal appearance, PERRL - Respiratory Exam Respiratory Exam: Clear to Ausculation Bilateral, NORMAL BREATHING PATTERN. absent: Accessory Muscle Use, Decreased Breath Sounds, Rales, Rhonchi, Wheezes, Respiratory Distress, Stridor - Cardiovascular Exam Cardiovascular Exam: RRR, +S1, +S2. absent: Gallop, Rubs - GI/Abdominal Exam GI & Abdominal Exam: Soft, Normal Bowel Sounds. absent: Guarding, Rigid, Tenderness - Extremities Exam Extremities Exam: Full ROM, Normal Capillary Refill, Normal Inspection. absent: Pedal Edema - Back Exam Back Exam: NORMAL INSPECTION. absent: CVA tenderness (L), CVA tenderness (R) - Neurological Exam Neurological Exam: Alert, Awake, Oriented x3 - Psychiatric Exam Psychiatric exam: Normal Affect, Normal Mood - Skin Skin Exam: Dry, Intact, Normal Color, Warm Assessment and Plan - Assessment and Plan (Free Text) Assessment: Pt is a 52 yo female with a PMHx of chronic back pain who presented to the ED after leaving AMA last night from [facility] [place]. Patient was admitted for overdose of flexeril and baclofen however left the hospital AMA. Pt states she experienced nausea and vomiting overnight with a one time bout of diarrhea yesterday after scope, but has calmed down since. She is feeling better this AM and will attempt to tolerate diet. Plan: 1. Intractable Nausea/ Vomiting/ Diarrhea - Amylase wnl, Lipase initially elevated at 378 but then wnl on next check - TSH- wnl - IVF NS-125 - pantoprazole - Sucralfate - CLD - GI consult, Dr Maher - Robin, Ativan PRN for nausea 2. Duodenal Ulcers - Noted on EGD: - EGD - Showed several small doudenal superficial ulcers, gastritis and duodenitis - Per GI advance diet as tolerated - Anti-reflux precautions - On protonix and carafate 3. Hypokalemia: Resolved - 3.7 today, will continue to monitor - replete PRN 4. Ppx - lovenox - Protonix - Carafate Further recs per Dr. Radha Rodriguez DO Internal Medicine Resident PGY-1 <Mauro Garcia - Last Filed: 01/01/18 19:01> Objective - Vital Signs/Intake and Output Vital Signs (last 24 hours): Temp Pulse Resp BP Pulse Ox 98.4 F 90 20 114/75 96 01/01/18 07:00 01/01/18 07:00 01/01/18 07:00 01/01/18 07:00 01/01/18 07:00 - Labs Labs: 01/01/18 06:00 12/30/17 07:00 Attending/Attestation - Attestation I have personally seen and examined this patient.: Yes I have fully participated in the care of the patient.: Yes I have reviewed all pertinent clinical information, including history, physical exam and plan: Yes
[2018-01-01] MEDS: Sucralfate 1 gm/10 ml Oral Susp UD PO SCH ×2 (00:59→05:31)
[2018-01-01 07:29] LABS: BASO # 0.04 K/mm3 (0.0-2.0); BASO % 0.7 % (0.0-3.0); EOS # 0.1 (0.0-0.7); EOS % 2.2 % (1.5-5.0); GRAN # 1.43 (1.4-6.5); GRAN % 26.5 % (50.0-68.0); HEMOGLOBIN 12.6 g/dL (12.0-16.0); LYMPH # 3.3 (1.2-3.4); LYMPH % 60.4 % (22.0-35.0); MEAN CELL VOLUME 90.3 fl (80.0-105.0); MEAN CORPUSCULAR HEMOGLOBIN 30.7 pg (25.0-35.0); MEAN PLATELET VOLUME 11.3 fl (7.0-11.0); MONO # 0.6 (0.1-0.6); MONO % 10.2 % (1.0-6.0); RBC 4.11 10^6/uL (3.5-6.1); RED CELL DISTRIBUTION WIDTH 12.4 % (11.5-14.5); WHITE BLOOD COUNT 5.4 10^3/uL (4.5-11.0)
[2018-01-01 09:27] VITALS: BP 114/75; PULSE 90; TEMP 98.4; O2SAT 96
[2018-01-01] MEDS: Menthol/Methyl Salicylate Ointment(1 oz) TOP SCH (10:57)
[2018-01-01] MEDS ORDERED: Pantoprazole 40 mg EC Tab PO SCH (16:00)
--- NOTE | 2018-01-01 16:07 | CP.PCM.DIS ---
<MichaelWeller - Last Filed: 01/01/18 16:01> Provider - Provider Date of Admission: 12/28/17 14:37 Attending physician: Maki Hernandez DO Time Spent in preparation of Discharge (in minutes): 45 Diagnosis - Discharge Diagnosis (1) Abdominal pain Status: Acute Hospital Course - Lab Results Lab Results: Micro Results 12/29/17 09:00 Stool Ova and Parasite Concentrate Exam - Final 12/29/17 09:00 Stool C. difficile Antigen & Toxins A,B - Final Most Recent Lab Values WBC 5.4 10^3/uL (4.5-11.0) 01/01/18 06:00 RBC 4.11 10^6/uL (3.5-6.1) 01/01/18 06:00 Hgb 12.6 g/dL (12.0-16.0) 01/01/18 06:00 Hct 37.1 % (36.0-48.0) 01/01/18 06:00 MCV 90.3 fl (80.0-105.0) 01/01/18 06:00 MCH 30.7 pg (25.0-35.0) 01/01/18 06:00 MCHC 34.0 g/dl (31.0-37.0) 01/01/18 06:00 RDW 12.4 % (11.5-14.5) 01/01/18 06:00 Plt Count 224 10^3/uL (120.0-450.0) 01/01/18 06:00 MPV 11.3 fl (7.0-11.0) H 01/01/18 06:00 Gran % 26.5 % (50.0-68.0) L 01/01/18 06:00 Lymph % (Auto) 60.4 % (22.0-35.0) H 01/01/18 06:00 Trigg % (Auto) 10.2 % (1.0-6.0) H 01/01/18 06:00 Eos % (Auto) 2.2 % (1.5-5.0) 01/01/18 06:00 Baso % (Auto) 0.7 % (0.0-3.0) 01/01/18 06:00 Gran # 1.43 (1.4-6.5) 01/01/18 06:00 Lymph # (Auto) 3.3 (1.2-3.4) 01/01/18 06:00 Trigg # (Auto) 0.6 (0.1-0.6) 01/01/18 06:00 Eos # (Auto) 0.1 (0.0-0.7) 01/01/18 06:00 Baso # (Auto) 0.04 K/mm3 (0.0-2.0) 01/01/18 06:00 Sodium 137 mmol/L (132-148) 12/30/17 07:00 Potassium 3.7 mmol/L (3.6-5.0) 12/30/17 07:00 Chloride 103 mmol/L (98-107) 12/30/17 07:00 Carbon Dioxide 26 mmol/L (21-33) 12/30/17 07:00 Anion Gap 12 (10-20) 12/30/17 07:00 BUN 6 mg/dL (7-21) L 12/30/17 07:00 Creatinine 0.7 mg/dl (0.7-1.2) 12/30/17 07:00 Est GFR ( Amer) > 60 12/30/17 07:00 Est GFR (Non-Af Amer) > 60 12/30/17 07:00 Random Glucose 94 mg/dL (70-110) 12/30/17 07:00 Calcium 9.2 mg/dL (8.4-10.5) 12/30/17 07:00 Phosphorus 3.3 mg/dL (2.5-4.5) 12/28/17 07:00 Magnesium 2.0 mg/dL (1.7-2.2) 12/28/17 07:00 Total Bilirubin 1.1 mg/dL (0.2-1.3) 12/30/17 07:00 AST 20 U/L (14-36) 12/30/17 07:00 ALT 29 U/L (7-56) 12/30/17 07:00 Alkaline Phosphatase 62 U/L (38-126) 12/30/17 07:00 Total Protein 7.3 g/dL (5.8-8.3) 12/30/17 07:00 Albumin 4.0 g/dL (3.0-4.8) 12/30/17 07:00 Globulin 3.4 gm/dL 12/30/17 07:00 Albumin/Globulin Ratio 1.2 (1.1-1.8) 12/30/17 07:00 Amylase 99 U/L (35-125) 12/27/17 07:20 Lipase 136 U/L (23-300) 12/27/17 07:20 TSH 3rd Generation 1.09 mIU/mL (0.46-4.68) 12/27/17 07:20 Urine Color Yellow (YELLOW) 12/27/17 00:15 Urine Appearance Clear (CLEAR) 12/27/17 00:15 Urine pH 6.0 (4.7-8.0) 12/27/17 00:15 Ur Specific Dexter 1.020 (1.005-1.035) 12/27/17 00:15 Urine Protein Negative mg/dL (<30 mg/dL) 12/27/17 00:15 Urine Glucose (UA) Negative mg/dL (NEGATIVE) 12/27/17 00:15 Urine Ketones Negative mg/dL (NEGATIVE) 12/27/17 00:15 Urine Blood Small (NEGATIVE) H 12/27/17 00:15 Urine Nitrate Negative (NEGATIVE) 12/27/17 00:15 Urine Bilirubin Negative (NEGATIVE) 12/27/17 00:15 Urine Urobilinogen 0.2 E.U./dL (<1 E.U./dL) 12/27/17 00:15 Ur Leukocyte Esterase Negative Neva/uL (NEGATIVE) 12/27/17 00:15 Urine RBC 2 - 5 /hpf (0-2) 12/27/17 00:15 Urine WBC 0 - 2 /hpf (0-6) 12/27/17 00:15 Ur Epithelial Cells 3 - 4 /hpf (0-5) 12/27/17 00:15 Urine Bacteria Few (NEG) 12/27/17 00:15 Stool Leukocytes, Qual Negative (NEGATIVE) 12/29/17 09:00 Urine Opiates Screen Negative (NEGATIVE) 12/28/17 16:10 Urine Methadone Screen Negative (NEGATIVE) 12/28/17 16:10 Ur Barbiturates Screen Negative (NEGATIVE) 12/28/17 16:10 Ur Phencyclidine Scrn Negative (NEGATIVE) 12/28/17 16:10 Ur Amphetamines Screen Negative (NEGATIVE) 12/28/17 16:10 U Benzodiazepines Scrn Negative (NEGATIVE) 12/28/17 16:10 U Oth Cocaine Metabols Negative (NEGATIVE) 12/28/17 16:10 U Cannabinoids Screen Negative (NEGATIVE) 12/28/17 16:10 Alcohol, Quantitative < 10 mg/dL (0-10) 12/27/17 09:40 - Hospital Course Hospital Course: Upon Admission: Pt is a 52 yo female with a PMH of chronic back pain who presented to the ED after leaving AMA last night [place] [facility] [place] Patient was admitted for overdose of flexeril and baclofen, however left the hospital last night when she became upset with being moved to a different room. Pt states she experienced 10 episodes of vomiting all throughout the day. She also reports 5 episodes of diarrhea which was non bloody and non billious. Pt denies any sick contacts. Pt states she has been experiencing nausea and abdominal pain which she describes as stabbing and periumbilical. Pt denies any urinary symptoms. A 12 point ROS was obtained and added to the HPI where appropriate. Hospital Course: Pt was worked up similar to last admission. Dr. Maher was re-consulted and agreed to do EGD later on in the week. The pt was placed on anti-reflux medications like carafate and protonix BID. Pt continued to have episodes of vomiting if attempted to have soft diet. EGD was done and had shown ulcers in the duodenum. The pt was told to continue the anti-reflux medications and to follow up with GI and cleared to d/c by GI once pt tolerated diet. Pt states that in the AM she was feeling much better and ready to go home. Pt was instructed to stay away from NSAIDs and continue a bland diet for a few days. Pt stated understanding and agreement with the medical plan for d/c. All questions and concerns of the pt were addressed prior to her d/c. Upon D/C: Pt was instructed to Follow up with Dr Smith, PMD, in 3-5 days. Take Protonix 40 mg two times a day and sucralfate 4 times a day as directed by the stomach doctor. Take Ativan only as needed for nausea and vomiting. Please stop smoking completely. It is harmful to your health. Follow up with Dr Maher, GI doctor, to follow up on stomach and duodenal biopsy results, in 1 week. Avoid NSAIDs. Stop aspirin until cleared by GI doctor. Return to ER for any worsening or return of symptoms Discharge Exam - Head Exam Head Exam: ATRAUMATIC, NORMAL INSPECTION, NORMOCEPHALIC - Eye Exam Eye Exam: EOMI, Normal appearance, PERRL - Respiratory Exam Respiratory Exam: NORMAL BREATHING PATTERN, UNREMARKABLE. absent: Accessory Muscle Use, Decreased Breath Sounds, Rales, Rhonchi, Wheezes, Respiratory Distress, Stridor - Cardiovascular Exam Cardiovascular Exam: RRR, +S1, +S2. absent: Gallop, Rubs - GI/Abdominal Exam GI & Abdominal Exam: Normal Bowel Sounds, Soft, Unremarkable. absent: Firm, Guarding, Hernia, Tenderness - Extremities Exam Extremities exam: normal capillary refill, normal inspection, pedal pulses present - Back Exam Back exam: NORMAL INSPECTION. absent: CVA tenderness (L), CVA tenderness (R) - Neurological Exam Neurological exam: Alert, Oriented x3 - Psychiatric Exam Psychiatric exam: Normal Affect, Normal Mood - Skin Skin Exam: Dry, Intact, Normal Color, Warm Discharge Plan - Discharge Medications Prescriptions: LORazepam [Ativan] 0.5 mg PO TID PRN #5 tab PRN Reason: Anxiety RX: Pantoprazole [Protonix EC Tab] 40 mg PO 0600,1600 30 Days #60 ect RX: Sucralfate [Carafate Oral Susp] 1 gm PO 0630,1130,1630,2200 14 Days #224 udc - Follow Up Plan Condition: GUARDED Disposition: HOME/ ROUTINE Instructions: Gastritis, Smoking: Not Just Harmful to Your Lungs and Heart, Anxiety, Adult (DC), Duodenal Ulcer (DC), Ulcer and Gastritis Diet Additional Instructions: Follow up with Dr Smith, PMD, in 3-5 days. Take Protonix 40 mg two times a day and sucralfate 4 times a day as directed by the stomach doctor. Take Ativan only as needed for nausea and vomiting. Please stop smoking completely. It is harmful to your health. Follow up with Dr Maher, GI doctor, to follow up on stomach and duodenal biopsy results, in 1 week. Avoid NSAIDs. Stop aspirin until cleared by GI doctor. Return to ER for any worsening or return of symptoms. Referrals: Alize Smith MD [Non-Staff] - Yon Maher DO [Staff Provider] - <Irfan,Mohammad - Last Filed: 01/03/18 14:40> Provider - Provider Date of Admission: 12/28/17 14:37 Attending physician: Maki Hernandez DO Hospital Course - Lab Results Lab Results: Micro Results 12/29/17 09:00 Stool Stool Culture - Final NO SALMONELLA, SHIGELLA OR CAMPYLOBACTER ISOLATED. 12/29/17 09:00 Stool Ova and Parasite Concentrate Exam - Final 12/29/17 09:00 Stool C. difficile Antigen & Toxins A,B - Final Most Recent Lab Values WBC 5.4 10^3/uL (4.5-11.0) 01/01/18 06:00 RBC 4.11 10^6/uL (3.5-6.1) 01/01/18 06:00 Hgb 12.6 g/dL (12.0-16.0) 01/01/18 06:00 Hct 37.1 % (36.0-48.0) 01/01/18 06:00 MCV 90.3 fl (80.0-105.0) 01/01/18 06:00 MCH 30.7 pg (25.0-35.0) 01/01/18 06:00 MCHC 34.0 g/dl (31.0-37.0) 01/01/18 06:00 RDW 12.4 % (11.5-14.5) 01/01/18 06:00 Plt Count 224 10^3/uL (120.0-450.0) 01/01/18 06:00 MPV 11.3 fl (7.0-11.0) H 01/01/18 06:00 Gran % 26.5 % (50.0-68.0) L 01/01/18 06:00 Lymph % (Auto) 60.4 % (22.0-35.0) H 01/01/18 06:00 Trigg % (Auto) 10.2 % (1.0-6.0) H 01/01/18 06:00 Eos % (Auto) 2.2 % (1.5-5.0) 01/01/18 06:00 Baso % (Auto) 0.7 % (0.0-3.0) 01/01/18 06:00 Gran # 1.43 (1.4-6.5) 01/01/18 06:00 Lymph # (Auto) 3.3 (1.2-3.4) 01/01/18 06:00 Trigg # (Auto) 0.6 (0.1-0.6) 01/01/18 06:00 Eos # (Auto) 0.1 (0.0-0.7) 01/01/18 06:00 Baso # (Auto) 0.04 K/mm3 (0.0-2.0) 01/01/18 06:00 Sodium 137 mmol/L (132-148) 12/30/17 07:00 Potassium 3.7 mmol/L (3.6-5.0) 12/30/17 07:00 Chloride 103 mmol/L (98-107) 12/30/17 07:00 Carbon Dioxide 26 mmol/L (21-33) 12/30/17 07:00 Anion Gap 12 (10-20) 12/30/17 07:00 BUN 6 mg/dL (7-21) L 12/30/17 07:00 Creatinine 0.7 mg/dl (0.7-1.2) 12/30/17 07:00 Est GFR ( Amer) > 60 12/30/17 07:00 Est GFR (Non-Af Amer) > 60 12/30/17 07:00 Random Glucose 94 mg/dL (70-110) 12/30/17 07:00 Calcium 9.2 mg/dL (8.4-10.5) 12/30/17 07:00 Phosphorus 3.3 mg/dL (2.5-4.5) 12/28/17 07:00 Magnesium 2.0 mg/dL (1.7-2.2) 12/28/17 07:00 Total Bilirubin 1.1 mg/dL (0.2-1.3) 12/30/17 07:00 AST 20 U/L (14-36) 12/30/17 07:00 ALT 29 U/L (7-56) 12/30/17 07:00 Alkaline Phosphatase 62 U/L (38-126) 12/30/17 07:00 Total Protein 7.3 g/dL (5.8-8.3) 12/30/17 07:00 Albumin 4.0 g/dL (3.0-4.8) 12/30/17 07:00 Globulin 3.4 gm/dL 12/30/17 07:00 Albumin/Globulin Ratio 1.2 (1.1-1.8) 12/30/17 07:00 Amylase 99 U/L (35-125) 12/27/17 07:20 Lipase 136 U/L (23-300) 12/27/17 07:20 TSH 3rd Generation 1.09 mIU/mL (0.46-4.68) 12/27/17 07:20 Urine Color Yellow (YELLOW) 12/27/17 00:15 Urine Appearance Clear (CLEAR) 12/27/17 00:15 Urine pH 6.0 (4.7-8.0) 12/27/17 00:15 Ur Specific Dexter 1.020 (1.005-1.035) 12/27/17 00:15 Urine Protein Negative mg/dL (<30 mg/dL) 12/27/17 00:15 Urine Glucose (UA) Negative mg/dL (NEGATIVE) 12/27/17 00:15 Urine Ketones Negative mg/dL (NEGATIVE) 12/27/17 00:15 Urine Blood Small (NEGATIVE) H 12/27/17 00:15 Urine Nitrate Negative (NEGATIVE) 12/27/17 00:15 Urine Bilirubin Negative (NEGATIVE) 12/27/17 00:15 Urine Urobilinogen 0.2 E.U./dL (<1 E.U./dL) 12/27/17 00:15 Ur Leukocyte Esterase Negative Neva/uL (NEGATIVE) 12/27/17 00:15 Urine RBC 2 - 5 /hpf (0-2) 12/27/17 00:15 Urine WBC 0 - 2 /hpf (0-6) 12/27/17 00:15 Ur Epithelial Cells 3 - 4 /hpf (0-5) 12/27/17 00:15 Urine Bacteria Few (NEG) 12/27/17 00:15 Stool Leukocytes, Qual Negative (NEGATIVE) 12/29/17 09:00 Urine Opiates Screen Negative (NEGATIVE) 12/28/17 16:10 Urine Methadone Screen Negative (NEGATIVE) 12/28/17 16:10 Ur Barbiturates Screen Negative (NEGATIVE) 12/28/17 16:10 Ur Phencyclidine Scrn Negative (NEGATIVE) 12/28/17 16:10 Ur Amphetamines Screen Negative (NEGATIVE) 12/28/17 16:10 U Benzodiazepines Scrn Negative (NEGATIVE) 12/28/17 16:10 U Oth Cocaine Metabols Negative (NEGATIVE) 12/28/17 16:10 U Cannabinoids Screen Negative (NEGATIVE) 12/28/17 16:10 Alcohol, Quantitative < 10 mg/dL (0-10) 12/27/17 09:40 Attending/Attestation - Attestation I have personally seen and examined this patient.: Yes I have fully participated in the care of the patient.: Yes I have reviewed all pertinent clinical information, including history, physical exam and plan: Yes Notes (Text): 01/03/18 14:38 Medical record note made by the resident after discussion with my direction and input after the patient was personally seen and examined by me. I have reviewed the chart and agree that the record accurately reflects by personal performance of the history, physical exam, data review, and medical decision-making, in the course for the patient. I have also personally directed the plan of care. Patient is feeling better.Nausea and vomiting has been resolved. Patient will be discharged home on PPI. Issue of compliance with medication was discussed in detail. Patient was advised not to take NSAID.
== END 2018-01-01 13:03 | disposition home or self-care (01) | DRG 384 ==
LOC: ED 23:50 → ERH 12-27 01:31 → 5RSO 12-27 03:05 → OBSVTOIN 12-28 14:37
PROVIDERS: ADMIT Internal Medicine; ATTEND Hospitalist
PROC: 0DB68ZX Excision of Stomach, Via Natural or Artificial Opening Endoscopic, Diagnostic (ICD-10-PCS; principal; 2017-12-30 09:30)
DX: K26.9 Duodenal ulcer, unspecified as acute or chronic, without hemorrhage or perforation (principal); K29.50 Unspecified chronic gastritis without bleeding; R10.9 Unspecified abdominal pain; M54.9 Dorsalgia, unspecified; K29.80 Duodenitis without bleeding; K21.9 Gastro-esophageal reflux disease without esophagitis; T48.1X1A Poisoning by skeletal muscle relaxants [neuromuscular blocking agents], accidental (unintentional), initial encounter; G47.00 Insomnia, unspecified; F17.210 Nicotine dependence, cigarettes, uncomplicated; Z79.82 Long term (current) use of aspirin; Z83.3 Family history of diabetes mellitus; E87.6 Hypokalemia; R11.2 Nausea with vomiting, unspecified